=== PATIENT | male | born 1970 | race Caucasian/White ===

== ENCOUNTER 2025-02-28 18:39 | Inpatient (IN) | payer OTHER, SELFPAY ==
--- OUTSIDE RECORDS SUMMARY | 2025-02-28 18:45 | XMS_ITS | Clinical Summary ---
Author Organization [facility] [place] [address] Care Team Providers Care [employer] Supervisor Name Role Phone Unavailable Primary Care Provider Unavailabl e Allergies No known active allergies Medications hydrOXYzine (ATARAX) 25 mg tabletIndication s:anxiety TK 1 T PO TID PRA 05/26/2020 Active dulaglutide (TRULICITY SUBQ)Indications :type 2 diabetes mellitus Inject under the skin. Active metFORMIN (FORTAMET) 500 mg 24 hr tabletIndication s:type 2 diabetes mellitus Take 500 mg by mouth daily with breakfast. Active Active Problems Problem Noted Date Diagnosed Date Substance induced mood disorder 03/17/2024 Intentional drug overdose, initial encounter 07/2024 Social History Tobacco Use Types Packs/Day Years Used Date Smoking Tobacco: Unknown Tobacco Cessation:Counseling Given: Not Answered [facility] Utilities Answer Date Recorded In the past 12 months has e [employer], gas, oil, or water [employer] threatened to shut off services in your home? Patient unable to answer 03/14/2024 Humiliation, Afraid, Rape, a nd Kick questionnaire Answer Date Recorded Within the last year, have y ou been afraid of your partner or ex-partner? Patient unable to answer 03/14/2024 Within the last year, have y ou been humiliated or emotionally abused in other ways by your partner or ex-partner? Patient unable to answer 03/14/2024 Within the last year, have y ou been kicked, hit, slapped, or otherwise physically hurt by your partner or ex-partner? Patient unable to answer 03/14/2024 Within the last year, have y ou been raped or forced to have any kind of sexual activity by your partner or ex-partner? Patient unable to answer 03/14/2024 Overall Financial Resource Strain (CARDIA) Answe r Date Recorded How hard is it for you to pa y for the very basics like food, housing, medical care, and heating? Patient unable to answer 03/14/2024 Hunger Vital Sign Answer Date Recorded Within the past 12 months, y ou worried that your food would run out before you got the money to buy more. Never true 03/17/20 24 Within the past 12 months, t he food you bought just didn't last and you didn't have money to get more. Never true 03/17/2024 PRAPARE - Transportation Answer Date Re corded In the past 12 months, has l ack of transportation kept you from medical appointments or from getting medications? Patient unable to answer 03/14/2024 Lack of Transportation (Non-Medical) Not on file 03/14/2024 Housing Stability Vital Sign Answer Vinnie e Recorded Unable to Pay for Housing in the Last Year Not o n file 03/14/2024 Number of Times Moved in the Last Year Not on fi le 03/14/2024 At any time in the past 12 m [facility], were you homeless or living in a senior living (including now)? Patient unable to answer 03/14/2024 Sex and Gender Information Value Date Recorded Sex Assigned at Not on file Legal Sex Male 1:13 AM EDT Gender Identity Not on file Sexual Orientation Not on file Last Filed Vital Signs Vital Sign Reading Time Taken Comments Blood Pressure 145/82 03/18/2024 12:52 PM EDT Pulse 97 03/18/2024 12:52 PM EDT Temperature 37.2 C (98.9 F) 03/18/2024 12:52 PM EDT Respiratory Rate 97 03/18/2024 12:5 2 PM EDT Oxygen Saturation 97% 03/18/2024 12: 52 PM EDT Inhaled Oxygen Concentration - - Weight 82.5 kg (181 lb 14.1 oz) 03/17/2024 4:47 PM EDT Height 182.9 cm (6') 03/17/2024 4:47 PM EDT Body Mass Index 24.67 03/17/2024 4:47 PM EDT Plan of Treatment Health Maintenance Due Date Last Done Comments CT Colonography 1968 Colonoscopy 1968 Colorectal Cancer Screening 1968 Diabetes: Urine Microalbumin 1968 FIT-DNA (Cologuard) 1968 FIT 1968 FOBT 1968 Flex Sigmoidoscopy - 5y 1968 HIV Screening 1968 Diabetes: Retinopathy Screening 1986 Hepatitis C Screening 1986 Hepatitis B Vaccines (1 of 3 - 19+ 3-dose series) 10/25/1987 Pneumococcal Vaccine, 50+ Years (2 of 2 - PPSV23) 06/27/2015 05/02/2015 Zoster Vaccines (1 of 2) 2018 COVID-19 Vaccine (1 - 2023-2 5 season) 2024 Diabetes: Hemoglobin A1C 09/14/2024 024, 05/30/2020, 08/30/2015 DTaP,Tdap,and Td Vaccines (2 - Td or Tdap) 09/19/2024 09/19/2014 Influenza Vaccine (#1) 2025 HPV Vaccines Aged Out No longer eligi ble based on patient's age to complete this topic Hepatitis A Vaccines Aged Out No long er eligible based on patient's age to complete this topic MMR Vaccines Aged Out No longer eligi ble based on patient's age to complete this topic Meningococcal Vaccine Aged Out No betito fern eligible based on patient's age to complete this topic Procedures Procedure Name Priority Date/Time Associated Diagnosis Comments HEMOGLOBIN A1C Add-On 03/14/2024 1:21 AM EDT from Last 3 Months or Most Recently Relevant to Health Maintenance Results * (ABNORMAL) Hemoglobin A1c (03/14/2024 1:21 AM EDT) Hemoglobin A1C 10.4(H) 4.4 - 6.4 % 03/14/2024 3:11 AM EDT [facility] Blood Venous blood specimen / Unknown Venipuncture / Unknown 03/14/2024 1:21 AM EDT 03/14/2024 1:25 AM EDT Narrative [facility] - 03/14/2024 3:11 AM EDT HbA1C greater than or equal to 6.5% diagnosis for Diabetes Mellitus. In the absence of unequivocal hyperglycemia, test should be confirmed by repeat testing. ADA Guidelines: Diagnosis and Classification of Diabetes Mellitus (position statement), Diabetes Care 2010; 33:S62-9. Hemoglobin A1C results may be inaccurate if abnormal hemoglobins are present. Tara Vogel [facility] LAB BLOOD ORDERABLES NO STA T Final Result [facility] [address] [place] [address], from Last 3 Months or Most Recently Relevant to Health Maintenance Advance Directives For more information, please contact: [phone] * Full Code (Latest Code Status on File) Date Activated Date Inactivated Comments 03/17/2024 4:55 PM 03/18/2024 4:58 PM * Full Code Date Activated Date Inactivated Comments 03/14/2024 2:21 AM 03/17/2024 4:46 PM * Full Code Date Activated Date Inactivated Comments 03/14/2024 1:34 AM 03/14/2024 2:21 AM
--- OUTSIDE RECORDS SUMMARY | 2025-02-28 18:45 | XMS_ITS ---
Author Name [facility] Organization Unknown Care Team Organization Name Specialty Phone Email Start Date End Da te [facility] Termed, PROVIDER Primary Care 06/10/202203/03
[2025-02-28 19:20] VITALS: BMI 24.8
[2025-02-28 20:00] VITALS: BP 122/76; PULSE 101; RESP 16; TEMP 36.8; O2SAT 97
[2025-02-28] MEDS: Insulin Glargine,Hum.rec.anlog 100 UNIT/ML 10 ML VIAL 10 UNIT SUBCUT (21:15)
[2025-02-28 22:34] LABS: Glucose, Whole Blood 193 mg/dL (60-115)
--- NOTE | 2025-02-28 22:56 | PC.NURSE ---
Admission Note Bill Pope, a 54-year-old man, was presented to [facility] ED via ambulance on section 12 by Wing JOHNSON from [facility] with chief complaint of making suicidal statement, under ETOH influence, with plan to jump off the [facility] parking roof or cutting his wrist. Patient reported that he has suicidal ideation for over 20 years. This time it is triggered by situational crises such as unemployment, homelessness, no car, and his recent medical finding of mass on his right kidney leading to his relapse on ETOH three weeks ago. The patient has a medical and psychiatric history of? HTN, COPD, Kidney stones, mass on the right kidney, hyperlipidemia, diverticulitis, diabetes, depression, and alcohol use disorder. Laser lithotripsy scheduled on 03/03/25 at [facility] and Kidney biopsy scheduled on 03/20/25 at [facility]. Bill arrived at our unit in a stretcher at 1913 on 02/28/25, signed CV/approved by the provider, with an admitting diagnosis of? depression. He is full-code. The patient is alert and oriented, times four. Behaviour pleasant and compliant with the admission process. Thought content logical/clear, thought process linear. Mood depressed and anxious. Affect flat. Endorses depression 10/10 and 6/10. Denied SI/HI/AVH. No skin issues were observed. VSS except pulse 101. POC was 193 @ 2229. CIWA @ 2113 was 8, administered Ativan 1 mg/effective. No history of ETOH withdrawal seizure. Med reconciliation was completed by the colleague, approved by the provider, MAR active, and the patient is compliant with medication. He ambulates independently, independent with care, and follows direction well. Labs are unremarkable. Medical records show UA negative. Utox positive for Benzos.? EKG abnormal/sinus tachycardia with possible anterior infarct. Bill signed his treatment plan, safety tool, belonging list, and release paper. Contraband searched. Bill is not a fall risk and is on a 15-minute for safety check.
[2025-03-01 08:00] VITALS: BP 129/64; PULSE 79; RESP 18; TEMP 36.9; O2SAT 99
[2025-03-01] MEDS: Nicotine 21 MG PATCH.TD24 TRANSDERMA (08:31)
[2025-03-01] MEDS: Clotrimazole 1 % Cream 15 GM TUBE 1 APPL TOPICAL ×2 (08:33→21:42)
--- NOTE | 2025-03-01 08:44 | PC.NURSE ---
Pt was offered NRT and utilized Nicotine patch. Pt is interested in smoking cessation and is interested in [facility] upon discharge.
[2025-03-01 09:10] LABS: Hemoglobin A1C 177.7610 umol/L; Total Hemoglobin (HGBA1C) 3763.1668 umol/L
--- NOTE | 2025-03-01 09:13 | HO.PSYADMNOT ---
HPI Date of Service: 03/01/25 Chief Complaint: SI Sources of Information: patient interviewed, chart reviewed and crisis/core team assessment reviewed HPI Subjective Notes: Plata Warning and Conditional Voluntary Healthcare Proxy: No Guardianship: No Medical Problems Affecting Mental Status: Yes (Found down some kidney issues, where he started drinking, and having SI) Narrative: Patient referred from [facility] ED, he is a 54 years old [place]ian speaking male with history of hypertension, COPD, kidney stones-left kidney, mass on right kidney and alcohol use, history of type 2 diabetes, history of suicide attempts and history of suicidal thoughts presented via ambulance on a section 12 from [place] [facility] from [facility] after expressing plans to jump off the roof of the parking structure while intoxicated. Patient been seen on 03/01 at 10:43 chief complaint I am suicidal I do not want to continue to be like this. I am an alcoholic. I do not want to be continue like this . Precipitants: Since he was informed that this is a mass in his right kidneys, he starts start drinking heavily for 3 weeks with a couple of pt a day with heaviest weight was last week. He he has been sober for 11 months prior to this relapsed. 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 Denies legal issues, history of DUI, not current. Denies access to guns. Denies SI/SIB/HI/AVH. Reports history of suicidal thoughts, and had doing stupid stuff when he has suicidal thoughts. History of suicide attempts via overdose on medications especially hydroxyzine. History of drinking alcohol to suicide attempts. He is anxious, but pleasant and cooperative, a self to the plans of medications. Reports sleeping and appetite has been good except for the weeks that he has been drinking. Mood is suck, reports increase in depression and anxiety 10/10. Past Psychiatric History: He reports history of 1 inpatient level of care many years ago for suicidal thoughts. No history of PHP. History of numerous detox for alcohol. No outpatient psychiatrist or therapist. PCP manage his medication No medication trial psychiatric. Remember that he took antidepressant before but can not recall the name, many years ago Medical Evaluation Reviewed: Yes PMF Narrative: Hypertension COPD, Diabetes, Kidney stones on left kidney. Mass in the right kidney Family History: He is 8 years ago, having 2 children who are 17 and 20 years old. They are with their mom. Patient was tearful when talking about his family. Both mom and dad passed. Mom in 2016. Dad committed suicide in 1990. History of bipolar: was given Prozac and turn to really manic per patient report which make patient resists to medication. Both mom and dad were alcoholic. He has a sibling he has not in contact and not sure if this sibling have any mental health or alcohol or other drugs issues. Social History: He is homeless, some college level for education. 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 He has no family support. No outpatient support Substance History: History of using cocaine and heroin. Been sober for many years. Smoke a pack a day. Using marijuana history, but denies current use. Drinking alcohol started when he was in his early 20s, having history of sober for 11 months before this time. He relapsed on alcohol 3 weeks ago after find out about his kidney issues. Denies withdrawal seizures. Trauma History: Denies Diagnostics Vital Signs (24Hr): Vital Signs - 24 hr 02/28/25 20:00 03/01/25 08:00 Temperature 98.2 F 98.4 F Pulse Rate 101 H 79 Respiratory Rate 16 18 Blood Pressure 122/76 129/64 Pulse Oximetry 97 99 Oxygen Delivery Method Room Air Room Air BMI result Body Mass Index 24.8 Labs 03/01/25 08:54 03/01/25 08:54 Labs: Laboratory Results - last 48 hr 02/28/25 03/01/25 22:29 08:54 POC Glucose 193 H Estimat Average Glucose 140 Hemoglobin A1c % 6.5 H Meds/Allergies Meds Home Medications ?Medication ?Instructions ?Recorded ?Confirmed ?Type albuterol sulfate 90 mcg/actuation 2 puff inhalation Q4-6H PRN 02/28/25 02/28/25 History aerosol inhaler (Ventolin HFA) Shortness Of Breath Or Wheezing dulaglutide 1.5 mg/0.5 mL 1.5 mg subcut QWEEK 02/28/25 02/28/25 History subcutaneous pen injector (Trulicity) folic acid 1 mg tablet 1 mg PO DAILY 02/28/25 02/28/25 History insulin glargine 100 unit/mL (3 10 unit subcut BEDTIME 02/28/25 02/28/25 History mL) subcutaneous pen (Lantus Solostar U-100 Insulin) ketoconazole 2 % topical cream 1 appl topical DAILY 02/28/25 02/28/25 History lisinopril 10 mg tablet 10 mg PO DAILY 02/28/25 02/28/25 History melatonin 3 mg tablet 6 mg PO BEDTIME 02/28/25 02/28/25 History multivitamin with folic acid 400 1 tab PO DAILY 02/28/25 02/28/25 History mcg tablet (Daily-Fady (with folic acid)) naltrexone 50 mg tablet 50 mg PO DAILY 02/28/25 02/28/25 History nicotine 21 mg/24 hr daily 1 patch topical DAILY 02/28/25 02/28/25 History transdermal patch rosuvastatin 5 mg tablet 5 mg PO DAILY 02/28/25 02/28/25 History thiamine HCl (vitamin B1) 100 mg 100 mg PO DAILY 02/28/25 02/28/25 History tablet umeclidinium 62.5 mcg-vilanterol 1 ea inhalation DAILY 02/28/25 02/28/25 History 25 mcg/actuation powdr for inhalation (Anoro Ellipta) Allergies Allergies Allergy/AdvReac Type Severity Reaction Status Date / Time No Known Allergies Allergy Verified 02/28/25 19:21 Mental Status Exam Mental Status Exam Narrative: Patient is alert and oriented x4; behavior is cooperative, friendly with moderate to severe anxiety and depression; patient is not in distress; dressed in hospital attire with kempt hair and adequate hygiene; mood is described as suck and affect congruent; eye contact appropriate; Speech is normal rate, volume and prosody and not pressured; no psychomotor agitation/retardation present; thought process is organized and goal directed; Thought content is WNL, pertinent to relevant topics and without any delusional content, paranoid ideation or grandiosity; denies any SI/SIB/HI. Denies AH and there is no evidence of perceptual disturbance. Patient's insight and judgment poor . Assessment & Plan Assessment & Plan (1) HTN (hypertension): Status: Acute Code(s): I10 - Essential (primary) hypertension (2) MDD (major depressive disorder), recurrent episode, moderate: Status: Acute Code(s): F33.1 - Major depressive disorder, recurrent, moderate (3) COPD (chronic obstructive pulmonary disease): Status: Acute Code(s): J44.9 - Chronic obstructive pulmonary disease, unspecified (4) Diabetes mellitus: Status: Acute Code(s): E11.9 - Type 2 diabetes mellitus without complications (5) Alcohol abuse: Status: Acute Code(s): F10.10 - Alcohol abuse, uncomplicated Plan HPI: Patient referred from [facility] ED, he is a 54 years old [place] speaking male with history of hypertension, COPD, kidney stones-left kidney, mass on right kidney and alcohol use, history of type 2 diabetes, history of suicide attempts and history of suicidal thoughts presented via ambulance on a section 12 from [place] [facility] from [facility] after expressing plans to jump off the roof of the parking structure while intoxicated. History of suicide attempts, history of alcohol use, numerous history of detox, history of 1 inpatient level of care many years ago for suicidal thoughts. He has not diagnosed with any psychiatric condition but mood has been on and off, up and down. Formulation/clinical reasoning: Increased stress, increased depression and anxiety 05/12, relapsed on alcohol the past 3 weeks, suicidal thoughts with plan in context of acute medical condition that he just found down he has a mass in the kidney, he also lost his jobs 3 weeks at the same time with the kidneys issues. He has not diagnosed with depression or bipolar before. History of suicide attempts. No outpatient providers, no family support, no system support. Even the above information, patient will be safe to be in the restrictive environment, monitor for safety, for safe detoxing from alcohol, manage medications, and upon discharge, we will refer patient to outpatient psychiatrist and therapist. Hospital course: 02/27/25: He placed diabetic protocol with insulin sliding scale. Placed on CIWA protocol with Ativan p.r.n.. Continue with home medications for hypertension, COPD, diabetic. I have discussed with patient regarding diagnosis. He is not sure if he has manic episode, but mood is up and down, per patient, that was bipolar, was given Prozac which was very bad turn him into a manic. Since then, patient has been reluctant to assess any antidepressants. At this moment, we will continue to see if he has any manic behavior. It is safe to start him on mood stabilizer, then at antidepressants on as a plan for today We will start with Trileptal 300 twice a day for mood. Will continue to monitor for sodium. Low-sodium this morning, most likely from poor meal intake has been consistently drinking the past couple of weeks. We will also held the naltrexone until he is done with detox Continue with melatonin 6 mg at bedtime for insomnia. Trazodone as needed for sleep. Hydroxyzine 50 mg as needed for anxiety and Ativan PRN per CIWA protocol. Trulicity and COPD non firmly the inhaler sent to [facility] [place]. Hope he can get started tomorrow Plan Patient on 15 minute checks for safety. Admitted to [facility]. CV. Work with treatment team to do collateral for CSS/CCS if possible for aftercare. Refer to patient to certified peer specialist. Patient to call rescheduled appointments with facility for his kidneys issues. Contact the hospitalist regarding hospitalist consultation on admission. Lab results from ED: BAL is 236. U tox positive for benzo, BUN 32, ALT and AFT is within normal limit. TSH is 1.80. Sodium is 135. 07/30: Sodium is 144. A1c is 6.5, BUN is 25. We will continue to monitor for sodium as he started the Trileptal. Patient educated on: diagnosis, medication risk/benefits, substance abuse and therapeutic strategies Reason for continued inpatient stay Substantial Risk for: med/psych decompensation Statement Statement: I have reviewed the history and physical and performed a pertinent examination on my patient. No changes have occurred unless specified. If the History and Physical was not performed prior to admission, the Hospitalist's service will be consulted for completing the admission physical. Time Spent With Patient Time: Total time managing care of this patient today ____ minutes.
[2025-03-01 09:29] LABS: Alanine Aminotransferase 20 U/L (0-40); Albumin Level 4.3 g/dL (3.5-5.0); Alkaline Phosphatase 112 U/L (39-117); Anion Gap 13 (12-20); Aspartate Amino Transferase 22 U/L (5-37); Blood Urea Nitrogen 25 mg/dL (9-16); Calcium 9.4 mg/dL (8.4-10.2); Carbon Dioxide 27 mmol/L (22-29); Chloride 99 mmol/L (96-108); Cholesterol 174 mg/dL (<200); Creatinine Clr Calc Pharmacy 99.4; Estimated Glomerular Filt Rate > 60; HDL Cholesterol 38 mg/dL (>40); Potassium 4.6 mmol/L (3.3-5.1); Sodium 134 mmol/L (135-145); Total Protein 7.6 g/dL (6.5-8.0); Triglycerides 126 mg/dL (<150)
--- NOTE | 2025-03-01 09:43 | HO.PM.IMCN ---
History of Present Illness Data of Consult Service Date: 03/01/25 Primary Care Provider: Karlie Pearce APRN [facility] Reason for consult: Medical management 54-year-old male with a past medical history of hypertension, COPD, kidney stones, right kidney mass, EtOH abuse presented via ambulance on a section 12 from [place] police Department from the [facility] after expressing plans to jump off the roof of the parking structure while intoxicated. Patient has a total of 8 attempts of suicide totally most recently in January 2025 due to an overdose of sleeping pills. Patient has been drinking 1 pt daily for the last 3 weeks, after a period of 11 months of sobriety. He has multiple stressors after being kicked out of the sober home, homelessness, and loss of job, as well as health concerns. Patient had mild leukocytosis, H&H within normal limits, LFTs within normal limits, TSH within normal limits. Slight increase in BUN/creatinine likely due to decreased p.o. intake. A1c noted to be 6.5. Vitals are stable. Patient is scheduled to have a lithotripsy on 03/03. He is followed by [facility]. Patient reports that he has a mass in his right kidney that has been there for about 1 month he is scheduled to have a biopsy of this area as well. On exam he denies any shortness of breath, dizziness, lightheadedness, back pain, abdominal pain, dysuria or any other concerning symptoms. Review of Systems Review of Systems: Denies any shortness of breath, chest pain, dizziness, lightheadedness, abdominal pain or discomfort, nausea vomiting or diarrhea PMFSH Social History Household Members: None Housing: Homeless Do you presently have visiting nurse or other home services: No Comment: Patient is not a fall risk Patient Tobacco Use Status: Current everyday Tobacco user Tobacco use type: Cigarette Currently Displaying Signs/Symptoms of Drug Intoxication Withdrawal: No Have you been hit, kicked, punched, or otherwise hurt by someone within the past year? If so, by whom?: No Do you feel safe in your current relationship?: No Current Relationship Is there a partner from a previous relationship who is making you feel unsafe now?: No Advance Directives: No Advance Directives Information Provided: No Do you have thoughts of harming others: None Do you have a plan to hurt others: No Plan Recently lost weight without trying: No Nutrition Risks: No Nutritional Risk Poor oral hygiene: No service: No Sexual orientation: Straight/Heterosexual Meds Allergies Allergy/AdvReac Type Severity Reaction Status Date / Time No Known Allergies Allergy Verified 02/28/25 19:21 Active Medications: Current Medications Acetaminophen (Acetaminophen 325 Mg Tablet) 650 mg PO Q6H PRN PRN Reason: Headache/Pain, Scale 1-10 Al Hydroxide/Mg Hydroxide (Magnesium Hydrox/Alum Hydrox 30 Ml Oral.Susp) 30 ml PO Q6H PRN PRN Reason: Heartburn/Nausea Albuterol Sulfate (Albuterol Sulfate 90 Mcg 8 Gm Inhaler) 2 puff INHALE Q4H PRN PRN Reason: Shortness Of Breath Or Wheezing Atorvastatin Calcium (Atorvastatin Calcium 20 Mg Tablet) 20 mg PO DAILY [facility] Last Admin: 03/01/25 08:33 Dose: 20 mg Clotrimazole (Clotrimazole 1 % Cream 15 Gm Tube) 1 appl TOPICAL DAILY [facility] Last Admin: 03/01/25 08:33 Dose: 1 appl Folic Acid (Folic Acid 1 Mg Tablet) 1 mg PO DAILY [facility] Last Admin: 03/01/25 08:32 Dose: 1 mg Hydroxyzine HCl (Hydroxyzine Hcl 25 Mg Tablet) 25 mg PO TID PRN PRN Reason: Anxiety Insulin Glargine (Insulin Glargine,Hum.Rec.Anlog 100 Unit/Ml 10 Ml Vial) 10 unit SUBCUT BEDTIME [facility] Last Admin: 02/28/25 21:15 Dose: 10 unit Lisinopril (Lisinopril 10 Mg Tablet) 10 mg PO DAILY [facility]; Protocol Last Admin: 03/01/25 08:33 Dose: 10 mg Lorazepam (Lorazepam 1 Mg Tablet) 1 mg PO Q2H PRN PRN Reason: CIWA 8-11 Last Admin: 02/28/25 21:15 Dose: 1 mg Lorazepam (Lorazepam 1 Mg Tablet) 2 mg PO Q2H PRN PRN Reason: CIWA 12-15 Magnesium Hydroxide (Milk Of Magnesia 30 Ml Oral.Susp) 30 ml PO DAILY PRN PRN Reason: Constipation Melatonin (Melatonin 3 Mg Tablet) 6 mg PO BEDTIME [facility] Last Admin: 02/28/25 21:15 Dose: 6 mg Multivitamins/Vitamin C (Multivitamin Tablet) 1 tab PO DAILY [facility] Last Admin: 03/01/25 08:33 Dose: 1 tab Naltrexone HCl (Naltrexone Hcl 50 Mg Tablet) 50 mg PO DAILY [facility] Last Admin: 03/01/25 08:32 Dose: 50 mg Nicotine (Nicotine 21 Mg Patch.Td24) 21 mg TRANSDERMA DAILY [facility] Last Admin: 03/01/25 08:31 Dose: 21 mg Nicotine Polacrilex (Nicotine Polacrilex 2 Mg Gum) 2 mg BUCCAL Q1H PRN PRN Reason: Nicotine Cravings Non-Formulary Medication (Dulaglutide [Trulicity]) 1.5 mg SUBCUT QWEEK [facility] Non-Formulary Medication (Umeclidinium-Vilanterol [Anoro Ellipta]) 1 each INHALE DAILY [facility] Olanzapine (Olanzapine 5 Mg Tablet) 5 mg PO BID PRN PRN Reason: agitation Thiamine HCl (Thiamine Hcl 100 Mg Tablet) 100 mg PO DAILY [facility] Last Admin: 03/01/25 08:33 Dose: 100 mg Trazodone HCl (Trazodone Hcl 50 Mg Tablet) 50 mg PO BEDTIME MRX1 PRN PRN Reason: Insomnia Home Medications ?Medication ?Instructions ?Recorded ?Confirmed ?Last Taken ?Type albuterol sulfate 90 mcg/actuation 2 puff inhalation Q4-6H PRN 02/28/25 02/28/25 02/28/25 History aerosol inhaler (Ventolin HFA) Shortness Of Breath Or Wheezing dulaglutide 1.5 mg/0.5 mL 1.5 mg subcut QWEEK 02/28/25 02/28/25 Unknown History subcutaneous pen injector (Trulicity) folic acid 1 mg tablet 1 mg PO DAILY 02/28/25 02/28/25 Unknown History insulin glargine 100 unit/mL (3 10 unit subcut BEDTIME 02/28/25 02/28/25 02/28/25 History mL) subcutaneous pen (Lantus Solostar U-100 Insulin) ketoconazole 2 % topical cream 1 appl topical DAILY 02/28/25 02/28/25 Unknown History lisinopril 10 mg tablet 10 mg PO DAILY 02/28/25 02/28/25 Unknown History melatonin 3 mg tablet 6 mg PO BEDTIME 02/28/25 02/28/25 02/28/25 History multivitamin with folic acid 400 1 tab PO DAILY 02/28/25 02/28/25 02/28/25 History mcg tablet (Daily-Fady (with folic acid)) naltrexone 50 mg tablet 50 mg PO DAILY 02/28/25 02/28/25 02/28/25 History nicotine 21 mg/24 hr daily 1 patch topical DAILY 02/28/25 02/28/25 02/28/25 History transdermal patch rosuvastatin 5 mg tablet 5 mg PO DAILY 02/28/25 02/28/25 02/28/25 History thiamine HCl (vitamin B1) 100 mg 100 mg PO DAILY 02/28/25 02/28/25 02/28/25 History tablet umeclidinium 62.5 mcg-vilanterol 1 ea inhalation DAILY 02/28/25 02/28/25 02/28/25 History 25 mcg/actuation powdr for inhalation (Anoro Ellipta) Physical Exam Vital Signs and Narrative: Vital Signs: Last Vital Signs Temp 98.4 F 03/01/25 08:00 Pulse 79 03/01/25 08:00 Resp 18 03/01/25 08:00 BP 129/64 03/01/25 08:00 Pulse Ox 99 03/01/25 08:00 O2 Del Method Room Air 03/01/25 08:00 BMI result Body Mass Index 24.8 Alert and oriented X3, able to give good history. Neuro: CN II-X11 intact, no deficits, visual acuity intact EYES: PERRLA, EOM intact ENT: Hearing intact, lips moist Cardiac: S1 S2 RRR, No ectopy Pulmonary: lungs clear to auscultation, No increased WOB. Abdominal: BS active in all 4 quadrants, no guarding or tenderness MSK: Strength 5/5 upper and lower extremities : Deferred Extremities: No edema in lower extremities Psych: mood stable, Quiet and cooperative. Skin: Warm and dry, Intact Results Labs 03/01/25 08:54 03/01/25 08:54 Labs: Laboratory Results - last 24 hr 02/28/25 03/01/25 22:29 08:54 Anion Gap 13 Estim Creat Clear Calc 99.4 Estimated GFR > 60 POC Glucose 193 H Random Glucose 233 H Estimat Average Glucose 140 Hemoglobin A1c % 6.5 H Calcium 9.4 Total Bilirubin 0.3 AST 22 ALT 20 Alkaline Phosphatase 112 Total Protein 7.6 Albumin 4.3 Triglycerides 126 Cholesterol 174 LDL Cholesterol, Calc 111 H HDL Cholesterol 38 L Assessment and Plan (1) HTN (hypertension): Status: Acute Plan Depression with suicidal ideation/EtOH abuse Treatment per psychiatric team Right renal mass, left kidney stone Scheduled to have a lithotripsy on March 03, also scheduled to have a renal biopsy in the near future Patient is a patient of [facility], we will need to be notified so that these tests and procedures can be rescheduled Hypertension/HLD Continue lisinopril daily Continue atorvastatin Type 2 diabetes Continue Trulicity weekly, insulin glargine at night. Lispro sliding scale. Thank you for allowing me to participate in the care of this patient. Will follow as needed. Please reconsult of any acute concerns or issues arise
[2025-03-01 11:47] LABS: Glucose, Whole Blood 138 mg/dL (60-115)
[2025-03-01 12:00] VITALS: BP 118/74; PULSE 89; RESP 16; TEMP 36.2; O2SAT 97
[2025-03-01 12:41] LABS: MANUAL DIFF FLAG NO
[2025-03-01 12:49] LABS: Hematocrit 43.3 % (42.0-52.0); Hemoglobin 14.7 g/dl (14.0-18.0); Imm Gran Abs Auto 0.03 X10*3/uL (0.00-0.03); Imm Gran Pct Auto 0.3 % (0.0-0.4); Lymphocytes Absolute Auto 1.9 X10*3/uL (1.2-4.9); Mean Corpuscular HGB Conc 33.9 g/dl (31.0-36.0); Mean Corpuscular Hemoglobin 31.8 pg (27.0-33.0); Mean Corpuscular Volume 93.7 fL (80.0-98.0); NRBC Abs Auto 0.000 X10*3/uL (0.0-0.012); NRBC Pct Auto 0.0 /100WBC (0.0-0.2); Platelet Count 176 X10*3/uL (160-400); Red Blood Count 4.62 X10*6/uL (4.60-5.80); White Blood Count 8.9 X10*3/uL (4.8-10.8)
[2025-03-01 16:05] VITALS: BP 124/69; PULSE 77; TEMP 36.7; O2SAT 98
[2025-03-01 16:55] LABS: Glucose, Whole Blood 182 mg/dL (60-115)
[2025-03-01 20:00] VITALS: BP 129/68; PULSE 88; RESP 16; TEMP 36.8; O2SAT 98
[2025-03-01 20:51] LABS: Glucose, Whole Blood 192 mg/dL (60-115)
[2025-03-01] MEDS: Insulin Glargine,Hum.rec.anlog 100 UNIT/ML 10 ML VIAL 10 UNIT SUBCUT (21:06)
[2025-03-02 07:52] VITALS: BP 131/71; RESP 75; TEMP 36.3; O2SAT 99
[2025-03-02 08:02] LABS: Glucose, Whole Blood 136 mg/dL (60-115)
[2025-03-02] MEDS: Nicotine 21 MG PATCH.TD24 TRANSDERMA (09:08)
[2025-03-02 09:09] VITALS: BP 134/68
[2025-03-02] MEDS: Clotrimazole 1 % Cream 15 GM TUBE 1 APPL TOPICAL (10:01)
[2025-03-02] MEDS: [UNRECOGNIZED DRUG - OTHER] 1 EACH SUBCUT (10:20)
[2025-03-02] MEDS: Fluticasone/Umeclidinium/Vilanterol 100/62.5/25 BLST.W.DEV 1 PUFF INHALE (13:21)
[2025-03-02] MEDS: Hydrocortisone 1 % Ointment 28.35 GM TUBE 1 APPL TOPICAL ×2 (13:29→21:03)
--- NOTE | 2025-03-02 16:03 | MHC.RECOVRN ---
Addiction Consult Met with Bill, a 54-year-old male with a history of alcohol use disorder, HTN, COPD, and diabetes in 324 after receiving addiction consult. Discussed etoh consumption, recent stressors, and past success in recovery from alcohol. Pt stated he's struggled with addiction since his early 20s, starting with cocaine and then with an alcohol dependence. Pt now hasn't used cocaine in years and only uses etoh. Pt stated this is his 2nd inpatient psych admission, the first being about 20 years ago for alcohol and mental health related reasons. In the past month pt has had multiple hospitalizations and ED visits for alcohol-related issues including at [facility] and [facility]. Pt was just started on naltrexone ~ January 31, at one of the hospitals he was being treated in. He does not find naltrexone particularly effective and instead would like to try the injection form to see if there's any difference. Pt stated I'm a big AA cliff. I've had success with AA in the past, however there's clearly something missing in my system. Pt noted a trigger for his recent recurrence was finding out he has a mass on one of his kidneys and fearing it might be cancerous. Another trigger has been his ex- and not being able to see his two 17-year-old sons (twins) recently due to his recurrence. Prior to this pt stayed for 4 months in a sober living home named [facility] . Due to his recurrence pt failed a breathalyzer test at the sober living home and was immediately kicked out losing his housing. Pt has had periods of sobriety 11 months, 2 years, 4 months [..] and during that time AA meetings are what helped him the most. He stated he has a big AA group of people that will be there for him once he is ready to pursue sobriety again. He is currently working with SW on CSS bed searches at [facility], [facility], and [facility]. At this time pt declined outpatient appoint for outpatient treatment of his AUD as he admits to requiring a higher level of care such as inpatient treatment. He declined restarting naltrexone at this time or other MIKE. T/w to obtain an AA book for pt. No other questions or concerns offered at this time. Will continue to follow up w/pt, provide support, and assist with any recovery needs that arise.
[2025-03-02 17:08] LABS: Glucose, Whole Blood 108 mg/dL (60-115)
[2025-03-02 17:08] LABS: Glucose, Whole Blood 143 mg/dL (60-115)
[2025-03-02 20:00] VITALS: BP 149/75; PULSE 99; RESP 18; TEMP 36.8; O2SAT 97
[2025-03-02 21:19] LABS: Glucose, Whole Blood 237 mg/dL (60-115)
[2025-03-02] MEDS: Insulin Glargine,Hum.rec.anlog 100 UNIT/ML 10 ML VIAL 10 UNIT SUBCUT (21:25)
--- NOTE | 2025-03-02 22:02 | HO.PSYCHPN ---
Subjective Subjective Date of Service: 03/02/25 Reason For Visit: SI Subjective Notes: Conditional Voluntary Healthcare Proxy: No Guardianship: No Medical Problems Affecting Mental Status: No Interim History: Medical record and nursing notes reviewed; case discussed during rounds with team/nursing staff, and met with patient for supportive therapy/psychoeducation, as well as medication management. Patient slept well, compliant with medications. Reports feeling tired from medication this morning. Educate patient on 1st dose of medications which could be affected and make him tired. Denies other safety concerns. Reports very anxious and depressed. Reports that he has not eating well the past 3 4 weeks when he was drinking, which could be rule out for low-sodium. We will recheck tomorrow. Work with pharmacies to get pending non-formular medication available for patient Medication Compliance: Yes Side effects from medications: No (Rashes on his face from clotrimazole cream. Discontinue it) Attending Groups: Intermittent Review of Systems Acute medical concerns: No Medical Review of Systems: unchanged Review of Systems Review of Systems Denies any shortness of breath, chest pain, dizziness, lightheadedness, abdominal pain or discomfort, nausea vomiting or diarrhea Yes all other systems are reviewed and are negative Mental Status Exam Mental Status Exam Narrative: Patient is alert and oriented x4; behavior is cooperative, friendly with moderate to severe anxiety and depression; patient is not in distress; dressed in hospital attire with kempt hair and adequate hygiene; mood is described as very anxious and depressed and affect congruent; eye contact appropriate; Speech is normal rate, volume and prosody and not pressured; no psychomotor agitation/retardation present; thought process is organized and goal directed; Thought content is WNL, pertinent to relevant topics and without any delusional content, paranoid ideation or grandiosity; denies any SI/SIB/HI. Denies AH and there is no evidence of perceptual disturbance. Patient's insight and judgment fair . Diagnostics Vital Signs (24Hr): Vital Signs - 24 hr 03/02/25 07:52 03/02/25 09:09 03/02/25 20:00 Temperature 97.3 F 98.2 F Pulse Rate 99 Respiratory Rate 75 H 18 Blood Pressure 131/71 134/68 149/75 H Pulse Oximetry 99 97 Oxygen Delivery Method Room Air Room Air BMI result Body Mass Index 24.8 Labs 03/01/25 08:54 03/01/25 08:54 Labs: Laboratory Results - last 48 hr 02/28/25 03/01/25 03/01/25 22:29 08:54 11:42 WBC 8.9 RBC 4.62 Hgb 14.7 Hct 43.3 MCV 93.7 MCH 31.8 MCHC 33.9 RDW 13.3 Plt Count 176 MPV 11.2 Immature Gran % (Auto) 0.3 Neut % (Auto) 68.0 Lymph % (Auto) 20.8 Dyer % (Auto) 6.7 Eos % (Auto) 3.9 Baso % (Auto) 0.3 Lymph # (Auto) 1.9 Dyer # (Auto) 0.6 Eos # (Auto) 0.4 Baso # (Auto) 0.0 Abs Immat Gran (auto) 0.03 Absolute Neuts (auto) 6.1 Absolute Nucleated RBC 0.000 Nucleated RBC % (auto) 0.0 Sodium 134 L Potassium 4.6 Chloride 99 Carbon Dioxide 27 Anion Gap 13 BUN 25 H Creatinine 0.91 Estim Creat Clear Calc 99.4 Estimated GFR > 60 POC Glucose 193 H 138 H Random Glucose 233 H Estimat Average Glucose 140 Hemoglobin A1c % 6.5 H Calcium 9.4 Total Bilirubin 0.3 AST 22 ALT 20 Alkaline Phosphatase 112 Total Protein 7.6 Albumin 4.3 Triglycerides 126 Cholesterol 174 LDL Cholesterol, Calc 111 H HDL Cholesterol 38 L TSH 1.49 03/01/25 03/01/25 03/02/25 16:51 20:47 07:58 WBC RBC Hgb Hct MCV MCH MCHC RDW Plt Count MPV Immature Gran % (Auto) Neut % (Auto) Lymph % (Auto) Dyer % (Auto) Eos % (Auto) Baso % (Auto) Lymph # (Auto) Dyer # (Auto) Eos # (Auto) Baso # (Auto) Abs Immat Gran (auto) Absolute Neuts (auto) Absolute Nucleated RBC Nucleated RBC % (auto) Sodium Potassium Chloride Carbon Dioxide Anion Gap BUN Creatinine Estim Creat Clear Calc Estimated GFR POC Glucose 182 H 192 H 136 H Random Glucose Estimat Average Glucose Hemoglobin A1c % Calcium Total Bilirubin AST ALT Alkaline Phosphatase Total Protein Albumin Triglycerides Cholesterol LDL Cholesterol, Calc HDL Cholesterol TSH 03/02/25 03/02/25 03/02/25 12:15 17:03 21:08 WBC RBC Hgb Hct MCV MCH MCHC RDW Plt Count MPV Immature Gran % (Auto) Neut % (Auto) Lymph % (Auto) Dyer % (Auto) Eos % (Auto) Baso % (Auto) Lymph # (Auto) Dyer # (Auto) Eos # (Auto) Baso # (Auto) Abs Immat Gran (auto) Absolute Neuts (auto) Absolute Nucleated RBC Nucleated RBC % (auto) Sodium Potassium Chloride Carbon Dioxide Anion Gap BUN Creatinine Estim Creat Clear Calc Estimated GFR POC Glucose 108 143 H 237 H Random Glucose Estimat Average Glucose Hemoglobin A1c % Calcium Total Bilirubin AST ALT Alkaline Phosphatase Total Protein Albumin Triglycerides Cholesterol LDL Cholesterol, Calc HDL Cholesterol TSH Medications Medications Current Medications Acetaminophen (Acetaminophen 325 Mg Tablet) 650 mg PO Q6H PRN PRN Reason: Headache/Pain, Scale 1-10 Al Hydroxide/Mg Hydroxide (Magnesium Hydrox/Alum Hydrox 30 Ml Oral.Susp) 30 ml PO Q6H PRN PRN Reason: Heartburn/Nausea Albuterol Sulfate (Albuterol Sulfate 90 Mcg 8 Gm Inhaler) 2 puff INHALE Q4H PRN PRN Reason: Shortness Of Breath Or Wheezing Atorvastatin Calcium (Atorvastatin Calcium 20 Mg Tablet) 20 mg PO DAILY [facility] Last Admin: 03/02/25 09:09 Dose: 20 mg Dextrose (Dextrose 50 % 25 Gm/50 Ml Syringe) 25 gm IVPUSH Q15M PRN; Protocol PRN Reason: per Hypoglycemia Standing Ord. Fluticasone/Umeclidinium/Vilanterol (Fluticasone/Umeclidinium/Vilanterol 100/62.5/25 Blst.W.Dev) 1 puff INHALE RDAILY [facility] Last Admin: 03/02/25 13:21 Dose: 1 puff Folic Acid (Folic Acid 1 Mg Tablet) 1 mg PO DAILY [facility] Last Admin: 03/02/25 09:09 Dose: 1 mg Glucose (Glucose Gel 15 Gm Gel..Gram.) 15 gm PO Q15M PRN; Protocol PRN Reason: per Hypoglycemia Standing Ord. Hydrocortisone (Hydrocortisone 1 % Ointment 28.35 Gm Tube) 1 appl TOPICAL BID [facility]; Protocol Last Admin: 03/02/25 21:03 Dose: 1 appl Hydroxyzine HCl (Hydroxyzine Hcl 25 Mg Tablet) 25 mg PO TID PRN PRN Reason: Anxiety Last Admin: 03/02/25 21:01 Dose: 25 mg Insulin Glargine (Insulin Glargine,Hum.Rec.Anlog 100 Unit/Ml 10 Ml Vial) 10 unit SUBCUT BEDTIME [facility] Last Admin: 03/02/25 21:25 Dose: 10 unit Insulin Human Lispro (Insulin Lispro 100 Unit/Ml 3 Ml Vial) 0 unit SUBCUT QIDACHS [facility]; Protocol Last Admin: 03/02/25 21:25 Dose: 4 unit Lisinopril (Lisinopril 10 Mg Tablet) 10 mg PO DAILY [facility]; Protocol Last Admin: 03/02/25 09:09 Dose: 10 mg Lorazepam (Lorazepam 1 Mg Tablet) 1 mg PO Q2H PRN PRN Reason: CIWA 8-11 Last Admin: 02/28/25 21:15 Dose: 1 mg Lorazepam (Lorazepam 1 Mg Tablet) 2 mg PO Q2H PRN PRN Reason: CIWA 12-15 Magnesium Hydroxide (Milk Of Magnesia 30 Ml Oral.Susp) 30 ml PO DAILY PRN PRN Reason: Constipation Melatonin (Melatonin 3 Mg Tablet) 6 mg PO BEDTIME [facility] Last Admin: 03/02/25 21:01 Dose: 6 mg Multivitamins/Vitamin C (Multivitamin Tablet) 1 tab PO DAILY [facility] Last Admin: 03/02/25 09:10 Dose: 1 tab Naltrexone HCl (Naltrexone Hcl 50 Mg Tablet) 50 mg PO DAILY [facility] On Hold: 03/01/25 19:53 Last Admin: 03/01/25 08:32 Dose: 50 mg Nicotine (Nicotine 21 Mg Patch.Td24) 21 mg TRANSDERMA DAILY [facility] Last Admin: 03/02/25 09:08 Dose: 21 mg Nicotine Polacrilex (Nicotine Polacrilex 2 Mg Gum) 2 mg BUCCAL Q1H PRN PRN Reason: Nicotine Cravings Non-Formulary Medication (Umeclidinium-Vilanterol [Anoro Ellipta]) 1 each INHALE DAILY [facility] Pt Owned (Trulicity (1.5mg / 0.5ml)) 1 each SUBCUT We [facility] Last Admin: 03/02/25 10:20 Dose: 1 each Olanzapine (Olanzapine 5 Mg Tablet) 5 mg PO BID PRN PRN Reason: agitation Oxcarbazepine (Oxcarbazepine 300 Mg Tablet) 300 mg PO BID [facility] Last Admin: 03/02/25 21:01 Dose: 300 mg Thiamine HCl (Thiamine Hcl 100 Mg Tablet) 100 mg PO DAILY [facility] Last Admin: 03/02/25 09:09 Dose: 100 mg Trazodone HCl (Trazodone Hcl 50 Mg Tablet) 50 mg PO BEDTIME MRX1 PRN PRN Reason: Insomnia Last Admin: 03/02/25 21:02 Dose: 50 mg Allergies Allergies Allergy/AdvReac Type Severity Reaction Status Date / Time No Known Allergies Allergy Verified 02/28/25 19:21 Assessment & Plan Assessment & Plan (1) HTN (hypertension): Status: Acute Code(s): I10 - Essential (primary) hypertension (2) MDD (major depressive disorder), recurrent episode, moderate: Status: Acute Code(s): F33.1 - Major depressive disorder, recurrent, moderate (3) COPD (chronic obstructive pulmonary disease): Status: Acute Code(s): J44.9 - Chronic obstructive pulmonary disease, unspecified (4) Diabetes mellitus: Status: Acute Code(s): E11.9 - Type 2 diabetes mellitus without complications (5) Alcohol abuse: Status: Acute Code(s): F10.10 - Alcohol abuse, uncomplicated Plan HPI: Patient referred from [facility] ED, he is a 54 years old Amharic speaking male with history of hypertension, COPD, kidney stones-left kidney, mass on right kidney and alcohol use, history of type 2 diabetes, history of suicide attempts and history of suicidal thoughts presented via ambulance on a section 12 from [place] police from [facility] after expressing plans to jump off the roof of the parking structure while intoxicated. History of suicide attempts, history of alcohol use, numerous history of detox, history of 1 inpatient level of care many years ago for suicidal thoughts. He has not diagnosed with any psychiatric condition but mood has been on and off, up and down. Formulation/clinical reasoning: Increased stress, increased depression and anxiety 05/12, relapsed on alcohol the past 3 weeks, suicidal thoughts with plan in context of acute medical condition that he just found down he has a mass in the kidney, he also lost his jobs 3 weeks at the same time with the kidneys issues. He has not diagnosed with depression or bipolar before. History of suicide attempts. No outpatient providers, no family support, no system support. Even the above information, patient will be safe to be in the restrictive environment, monitor for safety, for safe detoxing from alcohol, manage medications, and upon discharge, we will refer patient to outpatient psychiatrist and therapist. Hospital course: 02/27/25: He placed diabetic protocol with insulin sliding scale. Placed on CIWA protocol with Ativan p.r.n.. Continue with home medications for hypertension, COPD, diabetic. I have discussed with patient regarding diagnosis. He is not sure if he has manic episode, but mood is up and down, per patient, that was bipolar, was given Prozac which was very bad turn him into a manic. Since then, patient has been reluctant to assess any antidepressants. At this moment, we will continue to see if he has any manic behavior. It is safe to start him on mood stabilizer, then at antidepressants on as a plan for today We will start with Trileptal 300 twice a day for mood. Will continue to monitor for sodium. Low-sodium this morning, most likely from poor meal intake has been consistently drinking the past couple of weeks. We will also held the naltrexone until he is done with detox Continue with melatonin 6 mg at bedtime for insomnia. Trazodone as needed for sleep. Hydroxyzine 50 mg as needed for anxiety and Ativan PRN per CIWA protocol. Trulicity and COPD non firmly the inhaler sent to [facility] pharmacy. Hope he can get started tomorrow. 03/02/25: Continue with CIWA protocol which he has not score. No symptoms of withdrawal. Discontinue CIWA plus the Ativan PRNs. Denies safety concerns but reports moderate to severe anxiety and depression. Started Trileptal last night, took the 2nd dose in the morning, reportedly the bit tired, he napped earlier before lunch. Continue with point of care q.i.d.. Was able to shut now with genetic non formula medication. He able to receive the Trulicity today. Reported that he has not been eating well the past 4 weeks due to drinking which could be affect his sodium. Denies history of low-sodium. Plan Patient on 15 minute checks for safety. Admitted to [facility]. CV. Work with treatment team to do collateral for CSS/CCS if possible for aftercare. Refer to patient to senior marketing specialist. Patient to call rescheduled appointments with facility for his kidneys issues. Contact the hospitalist regarding hospitalist consultation on admission. Lab results from ED: BAL is 236. U tox positive for benzo, BUN 32, ALT and AFT is within normal limit. TSH is 1.80. Sodium is 135. 03/01: Sodium is 144. A1c is 6.5, BUN is 25. We will continue to monitor for sodium as he started the Trileptal. 03/02: CMP for March 03. Patient educated on: diagnosis, medication risk/benefits, substance abuse and therapeutic strategies Informed Consent: understands Reason for continued inpatient stay Substantial Risk for: med/psych decompensation Time Spent With Patient Time: Total time managing care of this patient today ____ minutes.
[2025-03-03 07:47] VITALS: BP 115/63; PULSE 81; RESP 18; TEMP 36.6; O2SAT 96
[2025-03-03 07:55] LABS: Glucose, Whole Blood 127 mg/dL (60-115)
[2025-03-03 08:49] LABS: Alanine Aminotransferase 30 U/L (0-40); Albumin Level 4.3 g/dL (3.5-5.0); Alkaline Phosphatase 134 U/L (39-117); Anion Gap 14 (12-20); Aspartate Amino Transferase 26 U/L (5-37); Blood Urea Nitrogen 24 mg/dL (9-16); Calcium 9.3 mg/dL (8.4-10.2); Carbon Dioxide 27 mmol/L (22-29); Chloride 102 mmol/L (96-108); Creatinine Clr Calc Pharmacy 111.7; Estimated Glomerular Filt Rate > 60; Potassium 4.2 mmol/L (3.3-5.1); Sodium 139 mmol/L (135-145); Total Protein 7.6 g/dL (6.5-8.0)
[2025-03-03] MEDS: Nicotine 21 MG PATCH.TD24 TRANSDERMA (08:50)
[2025-03-03 08:54] VITALS: BP 127/69
[2025-03-03] MEDS: Hydrocortisone 1 % Ointment 28.35 GM TUBE 1 APPL TOPICAL (08:55)
[2025-03-03] MEDS: Fluticasone/Umeclidinium/Vilanterol 100/62.5/25 BLST.W.DEV 1 PUFF INHALE (08:57)
--- NOTE | 2025-03-03 10:23 | HO.PSYCHPN ---
Subjective Subjective Date of Service: 03/03/25 Reason For Visit: SI Subjective Notes: Conditional Voluntary Interim History: Keeping to self. laying in bed most of day. Patient reports feeling tired but anxious; he reports sleeping well last night. denies SI/HI/VH/AH. Per social media marketer, pt has phone intake with [facility] today. Continue current tx plan. Medication Compliance: Yes Side effects from medications: No Attending Groups: No Mental Status Exam Mental Status Exam Narrative: Pt is alert and oriented; behavior is cooperative and calm, guarded; dressed in casual attire; mood is described as anxious ; eye contact appropriate; Speech is normal rate, volume and not pressured; thought process is organized; Thought content is on tx; denies SI/HI/VH/AH. Diagnostics Vital Signs (24Hr): Vital Signs - 24 hr 03/02/25 20:00 03/03/25 07:47 03/03/25 08:54 Temperature 98.2 F 97.8 F Pulse Rate 99 81 Respiratory Rate 18 18 Blood Pressure 149/75 H 115/63 127/69 Pulse Oximetry 97 96 Oxygen Delivery Method Room Air Room Air BMI result Body Mass Index 24.8 Labs 03/01/25 08:54 03/03/25 08:19 Labs: Laboratory Results - last 48 hr 03/01/25 03/01/25 03/01/25 08:54 11:42 16:51 WBC 8.9 RBC 4.62 Hgb 14.7 Hct 43.3 MCV 93.7 MCH 31.8 MCHC 33.9 RDW 13.3 Plt Count 176 MPV 11.2 Immature Gran % (Auto) 0.3 Neut % (Auto) 68.0 Lymph % (Auto) 20.8 [place] % (Auto) 6.7 Eos % (Auto) 3.9 Baso % (Auto) 0.3 Lymph # (Auto) 1.9 [place] # (Auto) 0.6 Eos # (Auto) 0.4 Baso # (Auto) 0.0 Abs Immat Gran (auto) 0.03 Absolute Neuts (auto) 6.1 Absolute Nucleated RBC 0.000 Nucleated RBC % (auto) 0.0 Sodium Potassium Chloride Carbon Dioxide Anion Gap BUN Creatinine Estim Creat Clear Calc Estimated GFR POC Glucose 138 H 182 H Random Glucose Calcium Total Bilirubin AST ALT Alkaline Phosphatase Total Protein Albumin 03/01/25 03/02/25 03/02/25 20:47 07:58 12:15 WBC RBC Hgb Hct MCV MCH MCHC RDW Plt Count MPV Immature Gran % (Auto) Neut % (Auto) Lymph % (Auto) [place] % (Auto) Eos % (Auto) Baso % (Auto) Lymph # (Auto) [place] # (Auto) Eos # (Auto) Baso # (Auto) Abs Immat Gran (auto) Absolute Neuts (auto) Absolute Nucleated RBC Nucleated RBC % (auto) Sodium Potassium Chloride Carbon Dioxide Anion Gap BUN Creatinine Estim Creat Clear Calc Estimated GFR POC Glucose 192 H 136 H 108 Random Glucose Calcium Total Bilirubin AST ALT Alkaline Phosphatase Total Protein Albumin 03/02/25 03/02/25 03/03/25 17:03 21:08 07:51 WBC RBC Hgb Hct MCV MCH MCHC RDW Plt Count MPV Immature Gran % (Auto) Neut % (Auto) Lymph % (Auto) [place] % (Auto) Eos % (Auto) Baso % (Auto) Lymph # (Auto) [place] # (Auto) Eos # (Auto) Baso # (Auto) Abs Immat Gran (auto) Absolute Neuts (auto) Absolute Nucleated RBC Nucleated RBC % (auto) Sodium Potassium Chloride Carbon Dioxide Anion Gap BUN Creatinine Estim Creat Clear Calc Estimated GFR POC Glucose 143 H 237 H 127 H Random Glucose Calcium Total Bilirubin AST ALT Alkaline Phosphatase Total Protein Albumin 03/03/25 08:19 WBC RBC Hgb Hct MCV MCH MCHC RDW Plt Count MPV Immature Gran % (Auto) Neut % (Auto) Lymph % (Auto) [place] % (Auto) Eos % (Auto) Baso % (Auto) Lymph # (Auto) [place] # (Auto) Eos # (Auto) Baso # (Auto) Abs Immat Gran (auto) Absolute Neuts (auto) Absolute Nucleated RBC Nucleated RBC % (auto) Sodium 139 Potassium 4.2 Chloride 102 Carbon Dioxide 27 Anion Gap 14 BUN 24 H Creatinine 0.81 Estim Creat Clear Calc 111.7 Estimated GFR > 60 POC Glucose Random Glucose 142 H Calcium 9.3 Total Bilirubin 0.1 AST 26 ALT 30 Alkaline Phosphatase 134 H Total Protein 7.6 Albumin 4.3 Medications Medications Current Medications Acetaminophen (Acetaminophen 325 Mg Tablet) 650 mg PO Q6H PRN PRN Reason: Headache/Pain, Scale 1-10 Al Hydroxide/Mg Hydroxide (Magnesium Hydrox/Alum Hydrox 30 Ml Oral.Susp) 30 ml PO Q6H PRN PRN Reason: Heartburn/Nausea Albuterol Sulfate (Albuterol Sulfate 90 Mcg 8 Gm Inhaler) 2 puff INHALE Q4H PRN PRN Reason: Shortness Of Breath Or Wheezing Atorvastatin Calcium (Atorvastatin Calcium 20 Mg Tablet) 20 mg PO DAILY [facility] Last Admin: 03/03/25 08:53 Dose: 20 mg Dextrose (Dextrose 50 % 25 Gm/50 Ml Syringe) 25 gm IVPUSH Q15M PRN; Protocol PRN Reason: per Hypoglycemia Standing Ord. Fluticasone/Umeclidinium/Vilanterol (Fluticasone/Umeclidinium/Vilanterol 100/62.5/25 Blst.W.Dev) 1 puff INHALE RDAILY [facility] Last Admin: 03/03/25 08:57 Dose: 1 puff Folic Acid (Folic Acid 1 Mg Tablet) 1 mg PO DAILY [facility] Last Admin: 03/03/25 08:55 Dose: 1 mg Glucose (Glucose Gel 15 Gm Gel..Gram.) 15 gm PO Q15M PRN; Protocol PRN Reason: per Hypoglycemia Standing Ord. Hydrocortisone (Hydrocortisone 1 % Ointment 28.35 Gm Tube) 1 appl TOPICAL BID [facility]; Protocol Last Admin: 03/03/25 08:55 Dose: 1 appl Hydroxyzine HCl (Hydroxyzine Hcl 25 Mg Tablet) 25 mg PO TID PRN PRN Reason: Anxiety Last Admin: 03/03/25 08:57 Dose: 25 mg Insulin Glargine (Insulin Glargine,Hum.Rec.Anlog 100 Unit/Ml 10 Ml Vial) 10 unit SUBCUT BEDTIME [facility] Last Admin: 03/02/25 21:25 Dose: 10 unit Insulin Human Lispro (Insulin Lispro 100 Unit/Ml 3 Ml Vial) 0 unit SUBCUT QIDACHS [facility]; Protocol Last Admin: 03/03/25 08:35 Dose: Not Given Lisinopril (Lisinopril 10 Mg Tablet) 10 mg PO DAILY [facility]; Protocol Last Admin: 03/03/25 08:54 Dose: 10 mg Magnesium Hydroxide (Milk Of Magnesia 30 Ml Oral.Susp) 30 ml PO DAILY PRN PRN Reason: Constipation Melatonin (Melatonin 3 Mg Tablet) 6 mg PO BEDTIME [facility] Last Admin: 03/02/25 21:01 Dose: 6 mg Multivitamins/Vitamin C (Multivitamin Tablet) 1 tab PO DAILY [facility] Last Admin: 03/03/25 08:54 Dose: 1 tab Naltrexone HCl (Naltrexone Hcl 50 Mg Tablet) 50 mg PO DAILY [facility] On Hold: 03/01/25 19:53 Last Admin: 03/01/25 08:32 Dose: 50 mg Nicotine (Nicotine 21 Mg Patch.Td24) 21 mg TRANSDERMA DAILY [facility] Last Admin: 03/03/25 08:50 Dose: 21 mg Nicotine Polacrilex (Nicotine Polacrilex 2 Mg Gum) 2 mg BUCCAL Q1H PRN PRN Reason: Nicotine Cravings Non-Formulary Medication (Umeclidinium-Vilanterol [Anoro Ellipta]) 1 each INHALE DAILY [facility] Pt Owned (Trulicity (1.5mg / 0.5ml)) 1 each SUBCUT We [facility] Last Admin: 03/02/25 10:20 Dose: 1 each Olanzapine (Olanzapine 5 Mg Tablet) 5 mg PO BID PRN PRN Reason: agitation Oxcarbazepine (Oxcarbazepine 300 Mg Tablet) 300 mg PO BID [facility] Last Admin: 03/03/25 08:53 Dose: 300 mg Thiamine HCl (Thiamine Hcl 100 Mg Tablet) 100 mg PO DAILY [facility] Last Admin: 03/03/25 08:54 Dose: 100 mg Trazodone HCl (Trazodone Hcl 50 Mg Tablet) 50 mg PO BEDTIME MRX1 PRN PRN Reason: Insomnia Last Admin: 03/02/25 21:02 Dose: 50 mg Allergies Allergies Allergy/AdvReac Type Severity Reaction Status Date / Time No Known Allergies Allergy Verified 02/28/25 19:21 Assessment & Plan Assessment & Plan (1) HTN (hypertension): Status: Acute Code(s): I10 - Essential (primary) hypertension (2) MDD (major depressive disorder), recurrent episode, moderate: Status: Acute Code(s): F33.1 - Major depressive disorder, recurrent, moderate (3) COPD (chronic obstructive pulmonary disease): Status: Acute Code(s): J44.9 - Chronic obstructive pulmonary disease, unspecified (4) Diabetes mellitus: Status: Acute Code(s): E11.9 - Type 2 diabetes mellitus without complications (5) Alcohol abuse: Status: Acute Code(s): F10.10 - Alcohol abuse, uncomplicated Plan HPI: Patient referred from [facility] ED, he is a 54 years old [place] speaking male with history of hypertension, COPD, kidney stones-left kidney, mass on right kidney and alcohol use, history of type 2 diabetes, history of suicide attempts and history of suicidal thoughts presented via ambulance on a section 12 from [place] police from [facility] after expressing plans to jump off the roof of the parking structure while intoxicated. History of suicide attempts, history of alcohol use, numerous history of detox, history of 1 inpatient level of care many years ago for suicidal thoughts. He has not diagnosed with any psychiatric condition but mood has been on and off, up and down. Formulation/clinical reasoning: Increased stress, increased depression and anxiety 05/12, relapsed on alcohol the past 3 weeks, suicidal thoughts with plan in context of acute medical condition that he just found down he has a mass in the kidney, he also lost his jobs 3 weeks at the same time with the kidneys issues. He has not diagnosed with depression or bipolar before. History of suicide attempts. No outpatient providers, no family support, no system support. Even the above information, patient will be safe to be in the restrictive environment, monitor for safety, for safe detoxing from alcohol, manage medications, and upon discharge, we will refer patient to outpatient psychiatrist and therapist. Hospital course: 02/27/25: He placed diabetic protocol with insulin sliding scale. Placed on CIWA protocol with Ativan p.r.n.. Continue with home medications for hypertension, COPD, diabetic. I have discussed with patient regarding diagnosis. He is not sure if he has manic episode, but mood is up and down, per patient, that was bipolar, was given Prozac which was very bad turn him into a manic. Since then, patient has been reluctant to assess any antidepressants. At this moment, we will continue to see if he has any manic behavior. It is safe to start him on mood stabilizer, then at antidepressants on as a plan for today We will start with Trileptal 300 twice a day for mood. Will continue to monitor for sodium. Low-sodium this morning, most likely from poor meal intake has been consistently drinking the past couple of weeks. We will also held the naltrexone until he is done with detox Continue with melatonin 6 mg at bedtime for insomnia. Trazodone as needed for sleep. Hydroxyzine 50 mg as needed for anxiety and Ativan PRN per CIWA protocol. Trulicpavel and COPD non firmly the inhaler sent to [facility] pharmacy. Hope he can get started tomorrow. 03/02/25: Continue with CIWA protocol which he has not score. No symptoms of withdrawal. Discontinue CIWA plus the Ativan PRNs. Denies safety concerns but reports moderate to severe anxiety and depression. Started Trileptal last night, took the 2nd dose in the morning, reportedly the bit tired, he napped earlier before lunch. Continue with point of care q.i.d.. Was able to shut now with genetic non formula medication. He able to receive the Trulicity today. Reported that he has not been eating well the past 4 weeks due to drinking which could be affect his sodium. Denies history of low-sodium. Plan Patient on 15 minute checks for safety. Admitted to [facility]. CV. Work with treatment team to do collateral for CSS/CCS if possible for aftercare. Refer to patient to microchip specialist. Patient to call rescheduled appointments with facility for his kidneys issues. Contact the hospitalist regarding hospitalist consultation on admission. Lab results from ED: BAL is 236. U tox positive for benzo, BUN 32, ALT and AFT is within normal limit. TSH is 1.80. Sodium is 135. 03/01: Sodium is 144. A1c is 6.5, BUN is 25. We will continue to monitor for sodium as he started the Trileptal. 03/02: CMP for March 03. 03/03: Keeping to self. laying in bed most of day. Patient reports feeling tired but anxious; he reports sleeping well last night. denies SI/HI/VH/AH. Per social media marketer, pt has phone intake with [facility] today. Continue current tx plan. Patient educated on: diagnosis and medication risk/benefits Reason for continued inpatient stay Substantial Risk for: med/psych decompensation Time Spent With Patient Time: Total time managing care of this patient today _20___ minutes.
[2025-03-03 12:01] LABS: Glucose, Whole Blood 141 mg/dL (60-115)
[2025-03-03 17:03] LABS: Glucose, Whole Blood 132 mg/dL (60-115)
[2025-03-03 20:15] VITALS: BP 127/62; PULSE 107; TEMP 37.1; O2SAT 96
[2025-03-03] MEDS: Insulin Glargine,Hum.rec.anlog 100 UNIT/ML 10 ML VIAL 10 UNIT SUBCUT (20:49)
[2025-03-03 20:59] LABS: Glucose, Whole Blood 281 mg/dL (60-115)
[2025-03-04 07:43] LABS: Glucose, Whole Blood 112 mg/dL (60-115)
[2025-03-04 07:56] VITALS: BP 112/60; PULSE 84; RESP 16; TEMP 36.7; O2SAT 94
[2025-03-04] MEDS: Nicotine 21 MG PATCH.TD24 TRANSDERMA (08:32)
[2025-03-04] MEDS: Fluticasone/Umeclidinium/Vilanterol 100/62.5/25 BLST.W.DEV 1 PUFF INHALE (08:32)
[2025-03-04] MEDS: Hydrocortisone 1 % Ointment 28.35 GM TUBE 1 APPL TOPICAL (08:34)
[2025-03-04 12:00] LABS: Glucose, Whole Blood 173 mg/dL (60-115)
[2025-03-04 16:42] LABS: Glucose, Whole Blood 236 mg/dL (60-115)
[2025-03-04 20:10] VITALS: BP 142/71; PULSE 101; RESP 16; TEMP 36.5; O2SAT 98
[2025-03-04 20:33] LABS: Glucose, Whole Blood 216 mg/dL (60-115)
[2025-03-04] MEDS: Insulin Glargine,Hum.rec.anlog 100 UNIT/ML 10 ML VIAL 10 UNIT SUBCUT (21:05)
--- NOTE | 2025-03-04 23:41 | P.PNPSI_ITS ---
Subjective Subjective Date of Service: 03/04/25 Reason For Visit: SI Subjective Notes: Conditional Voluntary Healthcare Proxy: No Guardianship: No Medical Problems Affecting Mental Status: No Interim History: Medical record and nursing notes reviewed; case discussed during rounds with team/nursing staff, and met with patient for supportive therapy/psychoeducation, as well as medication management. Slept for 8 hours, was medication compliant. Wanted Trileptal moved to bedtime so she he does not get so sedated during daytime. Continue reports severe anxiety and depression. Give handout given to patient by nursing regarding antidepressants per his request. He will choose 1 of the antidepressants after reading them. Denies other safety concerns. No hallucinations. Continued to express wanting to go to treatment program which the only way that keep him not drinking. Declines to resume the naltrexone at his does not work. Hydrocortisone moved to as needed. Medication Compliance: Yes (Except for hydrocortisone cream) Side effects from medications: Yes (Tired and sedated during day time yesterday. ) Attending Groups: Yes Review of Systems Acute medical concerns: No Medical Review of Systems: unchanged Review of Systems Review of Systems Denies any shortness of breath, chest pain, dizziness, lightheadedness, abdominal pain or discomfort, nausea vomiting or diarrhea Yes all other systems are reviewed and are negative Mental Status Exam Mental Status Exam Narrative: Pt is alert and oriented; behavior is cooperative but anxious and depressed; dressed in hospital attire; mood is described as anxious and depressed ; eye contact appropriate; Speech is normal rate, volume and not pressured; thought process is organized; Thought content is on tx; denies SI/HI/VH/AH. Diagnostics Vital Signs (24Hr): Vital Signs - 24 hr 03/04/25 07:56 03/04/25 20:10 Temperature 98.0 F 97.7 F Pulse Rate 84 101 H Respiratory Rate 16 16 Blood Pressure 112/60 142/71 H Pulse Oximetry 94 98 Oxygen Delivery Method Room Air Room Air BMI result Body Mass Index 24.8 Labs 03/01/25 08:54 03/03/25 08:19 Labs: Laboratory Results - last 48 hr 03/03/25 03/03/25 03/03/25 07:51 08:19 11:58 Sodium 139 Potassium 4.2 Chloride 102 Carbon Dioxide 27 Anion Gap 14 BUN 24 H Creatinine 0.81 Estim Creat Clear Calc 111.7 Estimated GFR > 60 POC Glucose 127 H 141 H Random Glucose 142 H Calcium 9.3 Total Bilirubin 0.1 AST 26 ALT 30 Alkaline Phosphatase 134 H Total Protein 7.6 Albumin 4.3 03/03/25 03/03/25 03/04/25 17:00 20:48 07:39 Sodium Potassium Chloride Carbon Dioxide Anion Gap BUN Creatinine Estim Creat Clear Calc Estimated GFR POC Glucose 132 H 281 H 112 Random Glucose Calcium Total Bilirubin AST ALT Alkaline Phosphatase Total Protein Albumin 03/04/25 03/04/25 03/04/25 11:56 16:38 20:29 Sodium Potassium Chloride Carbon Dioxide Anion Gap BUN Creatinine Estim Creat Clear Calc Estimated GFR POC Glucose 173 H 236 H 216 H Random Glucose Calcium Total Bilirubin AST ALT Alkaline Phosphatase Total Protein Albumin Medications Medications Current Medications Acetaminophen (Acetaminophen 325 Mg Tablet) 650 mg PO Q6H PRN PRN Reason: Headache/Pain, Scale 1-10 Al Hydroxide/Mg Hydroxide (Magnesium Hydrox/Alum Hydrox 30 Ml Oral.Susp) 30 ml PO Q6H PRN PRN Reason: Heartburn/Nausea Albuterol Sulfate (Albuterol Sulfate 90 Mcg 8 Gm Inhaler) 2 puff INHALE Q4H PRN PRN Reason: Shortness Of Breath Or Wheezing Atorvastatin Calcium (Atorvastatin Calcium 20 Mg Tablet) 20 mg PO DAILY [facility] Last Admin: 03/04/25 08:33 Dose: 20 mg Dextrose (Dextrose 50 % 25 Gm/50 Ml Syringe) 25 gm IVPUSH Q15M PRN; Protocol PRN Reason: per Hypoglycemia Standing Ord. Fluticasone/Umeclidinium/Vilanterol (Fluticasone/Umeclidinium/Vilanterol 100/62.5/25 Blst.W.Dev) 1 puff INHALE RDAILY [facility] Last Admin: 03/04/25 08:32 Dose: 1 puff Folic Acid (Folic Acid 1 Mg Tablet) 1 mg PO DAILY [facility] Last Admin: 03/04/25 08:35 Dose: 1 mg Glucose (Glucose Gel 15 Gm Gel..Gram.) 15 gm PO Q15M PRN; Protocol PRN Reason: per Hypoglycemia Standing Ord. Hydrocortisone (Hydrocortisone 1 % Ointment 28.35 Gm Tube) 1 appl TOPICAL BID [facility]; Protocol Last Admin: 03/04/25 21:12 Dose: Not Given Hydroxyzine HCl (Hydroxyzine Hcl 25 Mg Tablet) 25 mg PO TID PRN PRN Reason: Anxiety Last Admin: 03/04/25 21:08 Dose: 25 mg Insulin Glargine (Insulin Glargine,Hum.Rec.Anlog 100 Unit/Ml 10 Ml Vial) 10 unit SUBCUT BEDTIME [facility] Last Admin: 03/04/25 21:05 Dose: 10 unit Insulin Human Lispro (Insulin Lispro 100 Unit/Ml 3 Ml Vial) 0 unit SUBCUT QIDACHS [facility]; Protocol Last Admin: 03/04/25 21:06 Dose: 4 unit Lisinopril (Lisinopril 10 Mg Tablet) 10 mg PO DAILY [facility]; Protocol Last Admin: 03/04/25 08:33 Dose: 10 mg Magnesium Hydroxide (Milk Of Magnesia 30 Ml Oral.Susp) 30 ml PO DAILY PRN PRN Reason: Constipation Melatonin (Melatonin 3 Mg Tablet) 6 mg PO BEDTIME [facility] Last Admin: 03/04/25 21:08 Dose: 6 mg Multivitamins/Vitamin C (Multivitamin Tablet) 1 tab PO DAILY [facility] Last Admin: 03/04/25 08:15 Dose: 1 tab Naltrexone HCl (Naltrexone Hcl 50 Mg Tablet) 50 mg PO DAILY [facility] On Hold: 03/01/25 19:53 Last Admin: 03/01/25 08:32 Dose: 50 mg Nicotine (Nicotine 21 Mg Patch.Td24) 21 mg TRANSDERMA DAILY [facility] Last Admin: 03/04/25 08:32 Dose: 21 mg Nicotine Polacrilex (Nicotine Polacrilex 2 Mg Gum) 2 mg BUCCAL Q1H PRN PRN Reason: Nicotine Cravings Last Admin: 03/03/25 14:02 Dose: 2 mg Pt Owned (Trulicity (1.5mg / 0.5ml)) 1 each SUBCUT We [facility] Last Admin: 03/02/25 10:20 Dose: 1 each Olanzapine (Olanzapine 5 Mg Tablet) 5 mg PO BID PRN PRN Reason: agitation Last Admin: 03/04/25 14:56 Dose: 5 mg Oxcarbazepine (Oxcarbazepine 300 Mg Tablet) 600 mg PO BEDTIME [facility] Last Admin: 03/04/25 21:08 Dose: 600 mg Thiamine HCl (Thiamine Hcl 100 Mg Tablet) 100 mg PO DAILY [facility] Last Admin: 03/04/25 08:33 Dose: 100 mg Trazodone HCl (Trazodone Hcl 50 Mg Tablet) 50 mg PO BEDTIME MRX1 PRN PRN Reason: Insomnia Last Admin: 03/04/25 21:08 Dose: 50 mg Allergies Allergies Allergy/AdvReac Type Severity Reaction Status Date / Time No Known Allergies Allergy Verified 02/28/25 19:21 Assessment & Plan Assessment & Plan (1) HTN (hypertension): Status: Acute Code(s): I10 - Essential (primary) hypertension (2) MDD (major depressive disorder), recurrent episode, moderate: Status: Acute Code(s): F33.1 - Major depressive disorder, recurrent, moderate (3) COPD (chronic obstructive pulmonary disease): Status: Acute Code(s): J44.9 - Chronic obstructive pulmonary disease, unspecified (4) Diabetes mellitus: Status: Acute Code(s): E11.9 - Type 2 diabetes mellitus without complications (5) Alcohol abuse: Status: Acute Code(s): F10.10 - Alcohol abuse, uncomplicated Plan HPI: Patient referred from [facility] ED, he is a 54 years old Bulgarian speaking male with history of hypertension, COPD, kidney stones-left kidney, mass on right kidney and alcohol use, history of type 2 diabetes, history of suicide attempts and history of suicidal thoughts presented via ambulance on a section 12 from [place] police from [facility] after expressing plans to jump off the roof of the parking structure while intoxicated. History of suicide attempts, history of alcohol use, numerous history of detox, history of 1 inpatient level of care many years ago for suicidal thoughts. He has not diagnosed with any psychiatric condition but mood has been on and off, up and down. Formulation/clinical reasoning: Increased stress, increased depression and anxiety 05/12, relapsed on alcohol the past 3 weeks, suicidal thoughts with plan in context of acute medical condition that he just found down he has a mass in the kidney, he also lost his jobs 3 weeks at the same time with the kidneys issues. He has not diagnosed with depression or bipolar before. History of suicide attempts. No outpatient providers, no family support, no system support. Even the above information, patient will be safe to be in the restrictive environment, monitor for safety, for safe detoxing from alcohol, manage medications, and upon discharge, we will refer patient to outpatient psychiatrist and therapist. Hospital course: 02/27/25: He placed diabetic protocol with insulin sliding scale. Placed on CIWA protocol with Ativan p.r.n.. Continue with home medications for hypertension, COPD, diabetic. I have discussed with patient regarding diagnosis. He is not sure if he has manic episode, but mood is up and down, per patient, that was bipolar, was given Prozac which was very bad turn him into a manic. Since then, patient has been reluctant to assess any antidepressants. At this moment, we will continue to see if he has any manic behavior. It is safe to start him on mood stabilizer, then at antidepressants on as a plan for today We will start with Trileptal 300 twice a day for mood. Will continue to monitor for sodium. Low-sodium this morning, most likely from poor meal intake has been consistently drinking the past couple of weeks. We will also held the naltrexone until he is done with detox Continue with melatonin 6 mg at bedtime for insomnia. Trazodone as needed for sleep. Hydroxyzine 50 mg as needed for anxiety and Ativan PRN per CIWA protocol. Trulicity and COPD non firmly the inhaler sent to [facility] [place]. Hope he can get started tomorrow. 03/02/25: Continue with CIWA protocol which he has not score. No symptoms of withdrawal. Discontinue CIWA plus the Ativan PRNs. Denies safety concerns but reports moderate to severe anxiety and depression. Started Trileptal last night, took the 2nd dose in the morning, reportedly the bit tired, he napped earlier before lunch. Continue with point of care q.i.d.. Was able to shut now with genetic non formula medication. He able to receive the Trulicity today. Reported that he has not been eating well the past 4 weeks due to drinking which could be affect his sodium. Denies history of low-sodium. 03/03: Keeping to self. laying in bed most of day. Patient reports feeling tired but anxious; he reports sleeping well last night. denies SI/HI/VH/AH. Per social worker delinquency prevention, pt has phone intake with [facility] today. Continue current tx plan. 03/04/25:Slept for 8 hours, was medication compliant. Wanted Trileptal moved to bedtime so she he does not get so sedated during daytime. Continue reports severe anxiety and depression. Give handout given to patient by nursing regarding antidepressants per his request. He will choose 1 of the antidepressants after reading them. Denies other safety concerns. No hallucinations. Continued to express wanting to go to treatment program which the only way that keep him not drinking. Declines to resume the naltrexone at his does not work. Hydrocortisone moved to as needed. Normal sodium level. Plan Patient on 15 minute checks for safety. Admitted to [facility]. CV. Work with treatment team to do collateral for CSS/CCS if possible for aftercare. Refer to patient to radiologic electronic specialist. Patient to call rescheduled appointments with facility for his kidneys issues. Contact the hospitalist regarding hospitalist consultation on admission. Lab results from ED: BAL is 236. U tox positive for benzo, BUN 32, ALT and AFT is within normal limit. TSH is 1.80. Sodium is 135. 03/01: Sodium is 144. A1c is 6.5, BUN is 25. We will continue to monitor for sodium as he started the Trileptal. 03/02: CMP for March 03: 139 WNL. Patient educated on: diagnosis, medication risk/benefits, substance abuse and therapeutic strategies Informed Consent: understands Reason for continued inpatient stay Substantial Risk for: med/psych decompensation Time Spent With Patient Time: Total time managing care of this patient today ____ minutes.
[2025-03-05 07:54] LABS: Glucose, Whole Blood 152 mg/dL (60-115)
[2025-03-05 08:00] VITALS: BP 103/58; PULSE 80; RESP 20; TEMP 36.9; O2SAT 94
[2025-03-05] MEDS: Fluticasone/Umeclidinium/Vilanterol 100/62.5/25 BLST.W.DEV 1 PUFF INHALE (08:00)
[2025-03-05 12:02] LABS: Glucose, Whole Blood 149 mg/dL (60-115)
[2025-03-05 16:42] LABS: Glucose, Whole Blood 201 mg/dL (60-115)
[2025-03-05 20:00] VITALS: BP 132/69; PULSE 90; RESP 16; TEMP 36.8; O2SAT 99
[2025-03-05 21:14] LABS: Glucose, Whole Blood 283 mg/dL (60-115)
[2025-03-05] MEDS: Insulin Glargine,Hum.rec.anlog 100 UNIT/ML 10 ML VIAL 10 UNIT SUBCUT (21:23)
--- NOTE | 2025-03-05 22:20 | P.PNPSI_ITS ---
Subjective Subjective Date of Service: 03/05/25 Reason For Visit: SI Subjective Notes: Conditional Voluntary Healthcare Proxy: No Guardianship: No Medical Problems Affecting Mental Status: No Interim History: Medical record and nursing notes reviewed; case discussed during rounds with team/nursing staff, and met with patient for supportive therapy/psychoeducation, as well as medication management. Patient slept for 7.5 hours, contracture trazodone due to a roommate moving around at night. Reports high in depression and anxiety, worry about placement, he is visible, attended groups, or reading in his room. He decided to choose Zoloft among other antidepressants for anxiety depression. Denies other safety concerns. We will monitor for any manic behavior. Medication Compliance: Yes Side effects from medications: Yes Attending Groups: Intermittent Review of Systems Acute medical concerns: No Medical Review of Systems: unchanged Review of Systems Review of Systems Denies any shortness of breath, chest pain, dizziness, lightheadedness, abdominal pain or discomfort, nausea vomiting or diarrhea Yes all other systems are reviewed and are negative Mental Status Exam Mental Status Exam Narrative: Pt is alert and oriented; behavior is cooperative but anxious and depressed; dressed in hospital attire; mood is described as anxious and depressed ; eye contact appropriate; Speech is normal rate, volume and not pressured; thought process is organized; Thought content is on tx; denies SI/HI/VH/AH. Diagnostics Vital Signs (24Hr): Vital Signs - 24 hr 03/05/25 08:00 Temperature 98.4 F Pulse Rate 80 Respiratory Rate 20 Blood Pressure 103/58 L Pulse Oximetry 94 Oxygen Delivery Method Room Air BMI result Body Mass Index 24.8 Labs 03/01/25 08:54 03/03/25 08:19 Labs: Laboratory Results - last 48 hr 03/04/25 03/04/25 03/04/25 07:39 11:56 16:38 POC Glucose 112 173 H 236 H 03/04/25 03/05/25 03/05/25 20:29 07:46 11:58 POC Glucose 216 H 152 H 149 H 03/05/25 03/05/25 16:38 21:09 POC Glucose 201 H 283 H Medications Medications Current Medications Acetaminophen (Acetaminophen 325 Mg Tablet) 650 mg PO Q6H PRN PRN Reason: Headache/Pain, Scale 1-10 Al Hydroxide/Mg Hydroxide (Magnesium Hydrox/Alum Hydrox 30 Ml Oral.Susp) 30 ml PO Q6H PRN PRN Reason: Heartburn/Nausea Albuterol Sulfate (Albuterol Sulfate 90 Mcg 8 Gm Inhaler) 2 puff INHALE Q4H PRN PRN Reason: Shortness Of Breath Or Wheezing Atorvastatin Calcium (Atorvastatin Calcium 20 Mg Tablet) 20 mg PO DAILY [facility] Last Admin: 03/05/25 08:01 Dose: 20 mg Dextrose (Dextrose 50 % 25 Gm/50 Ml Syringe) 25 gm IVPUSH Q15M PRN; Protocol PRN Reason: per Hypoglycemia Standing Ord. Fluticasone/Umeclidinium/Vilanterol (Fluticasone/Umeclidinium/Vilanterol 100/62.5/25 Blst.W.Dev) 1 puff INHALE RDAILY [facility] Last Admin: 03/05/25 08:00 Dose: 1 puff Folic Acid (Folic Acid 1 Mg Tablet) 1 mg PO DAILY [facility] Last Admin: 03/05/25 08:01 Dose: 1 mg Glucose (Glucose Gel 15 Gm Gel..Gram.) 15 gm PO Q15M PRN; Protocol PRN Reason: per Hypoglycemia Standing Ord. Hydrocortisone (Hydrocortisone 1 % Ointment 28.35 Gm Tube) 1 appl TOPICAL BID PRN; Protocol PRN Reason: rash on face Hydroxyzine HCl (Hydroxyzine Hcl 25 Mg Tablet) 25 mg PO TID PRN PRN Reason: Anxiety Last Admin: 03/04/25 21:08 Dose: 25 mg Insulin Glargine (Insulin Glargine,Hum.Rec.Anlog 100 Unit/Ml 10 Ml Vial) 10 unit SUBCUT BEDTIME [facility] Last Admin: 03/05/25 21:23 Dose: 10 unit Insulin Human Lispro (Insulin Lispro 100 Unit/Ml 3 Ml Vial) 0 unit SUBCUT QIDACHS [facility]; Protocol Last Admin: 03/05/25 21:25 Dose: 6 unit Lisinopril (Lisinopril 10 Mg Tablet) 10 mg PO DAILY [facility]; Protocol Last Admin: 03/05/25 08:01 Dose: 10 mg Magnesium Hydroxide (Milk Of Magnesia 30 Ml Oral.Susp) 30 ml PO DAILY PRN PRN Reason: Constipation Melatonin (Melatonin 3 Mg Tablet) 6 mg PO BEDTIME [facility] Last Admin: 03/05/25 21:23 Dose: 6 mg Multivitamins/Vitamin C (Multivitamin Tablet) 1 tab PO DAILY [facility] Last Admin: 03/05/25 08:01 Dose: 1 tab Naltrexone HCl (Naltrexone Hcl 50 Mg Tablet) 50 mg PO DAILY [facility] On Hold: 03/01/25 19:53 Last Admin: 03/01/25 08:32 Dose: 50 mg Nicotine (Nicotine 21 Mg Patch.Td24) 21 mg TRANSDERMA DAILY [facility] Last Admin: 03/05/25 08:58 Dose: Not Given Nicotine Polacrilex (Nicotine Polacrilex 2 Mg Gum) 2 mg BUCCAL Q1H PRN PRN Reason: Nicotine Cravings Last Admin: 03/05/25 14:06 Dose: 2 mg Pt Owned (Trulicity (1.5mg / 0.5ml)) 1 each SUBCUT We [facility] Last Admin: 03/02/25 10:20 Dose: 1 each Olanzapine (Olanzapine 5 Mg Tablet) 5 mg PO BID PRN PRN Reason: agitation Last Admin: 03/05/25 21:23 Dose: 5 mg Oxcarbazepine (Oxcarbazepine 300 Mg Tablet) 600 mg PO BEDTIME [facility] Last Admin: 03/05/25 21:22 Dose: 600 mg Sertraline HCl (Sertraline Hcl 50 Mg Tablet) 50 mg PO DAILY [facility] Last Admin: 03/05/25 15:02 Dose: 50 mg Thiamine HCl (Thiamine Hcl 100 Mg Tablet) 100 mg PO DAILY [facility] Last Admin: 03/05/25 08:01 Dose: 100 mg Trazodone HCl (Trazodone Hcl 50 Mg Tablet) 50 mg PO BEDTIME MRX1 PRN PRN Reason: Insomnia Last Admin: 03/05/25 21:23 Dose: 50 mg Allergies Allergies Allergy/AdvReac Type Severity Reaction Status Date / Time No Known Allergies Allergy Verified 02/28/25 19:21 Assessment & Plan Assessment & Plan (1) HTN (hypertension): Status: Acute Code(s): I10 - Essential (primary) hypertension (2) MDD (major depressive disorder), recurrent episode, moderate: Status: Acute Code(s): F33.1 - Major depressive disorder, recurrent, moderate (3) COPD (chronic obstructive pulmonary disease): Status: Acute Code(s): J44.9 - Chronic obstructive pulmonary disease, unspecified (4) Diabetes mellitus: Status: Acute Code(s): E11.9 - Type 2 diabetes mellitus without complications (5) Alcohol abuse: Status: Acute Code(s): F10.10 - Alcohol abuse, uncomplicated Plan HPI: Patient referred from [facility] ED, he is a 54 years old Macedonian speaking male with history of hypertension, COPD, kidney stones-left kidney, mass on right kidney and alcohol use, history of type 2 diabetes, history of suicide attempts and history of suicidal thoughts presented via ambulance on a section 12 from [place] police from [facility] after expressing plans to jump off the roof of the parking structure while intoxicated. History of suicide attempts, history of alcohol use, numerous history of detox, history of 1 inpatient level of care many years ago for suicidal thoughts. He has not diagnosed with any psychiatric condition but mood has been on and off, up and down. Formulation/clinical reasoning: Increased stress, increased depression and anxiety 05/12, relapsed on alcohol the past 3 weeks, suicidal thoughts with plan in context of acute medical condition that he just found down he has a mass in the kidney, he also lost his jobs 3 weeks at the same time with the kidneys issues. He has not diagnosed with depression or bipolar before. History of suicide attempts. No outpatient providers, no family support, no system support. Even the above information, patient will be safe to be in the restrictive environment, monitor for safety, for safe detoxing from alcohol, manage medications, and upon discharge, we will refer patient to outpatient psychiatrist and therapist. Hospital course: 02/27/25: He placed diabetic protocol with insulin sliding scale. Placed on CIWA protocol with Ativan p.r.n.. Continue with home medications for hypertension, COPD, diabetic. I have discussed with patient regarding diagnosis. He is not sure if he has manic episode, but mood is up and down, per patient, that was bipolar, was given Prozac which was very bad turn him into a manic. Since then, patient has been reluctant to assess any antidepressants. At this moment, we will continue to see if he has any manic behavior. It is safe to start him on mood stabilizer, then at antidepressants on as a plan for today We will start with Trileptal 300 twice a day for mood. Will continue to monitor for sodium. Low-sodium this morning, most likely from poor meal intake has been consistently drinking the past couple of weeks. We will also held the naltrexone until he is done with detox Continue with melatonin 6 mg at bedtime for insomnia. Trazodone as needed for sleep. Hydroxyzine 50 mg as needed for anxiety and Ativan PRN per CIWA protocol. Trulicity and COPD non firmly the inhaler sent to [facility] pharmacy. Hope he can get started tomorrow. 03/02/25: Continue with CIWA protocol which he has not score. No symptoms of withdrawal. Discontinue CIWA plus the Ativan PRNs. Denies safety concerns but reports moderate to severe anxiety and depression. Started Trileptal last night, took the 2nd dose in the morning, reportedly the bit tired, he napped earlier before lunch. Continue with point of care q.i.d.. Was able to shut now with genetic non formula medication. He able to receive the Trulicity today. Reported that he has not been eating well the past 4 weeks due to drinking which could be affect his sodium. Denies history of low-sodium. 03/03: Keeping to self. laying in bed most of day. Patient reports feeling tired but anxious; he reports sleeping well last night. denies SI/HI/VH/AH. Per pediatric social worker, pt has phone intake with [facility] today. Continue current tx plan. 03/04/25:Slept for 8 hours, was medication compliant. Wanted Trileptal moved to bedtime so she he does not get so sedated during daytime. Continue reports severe anxiety and depression. Give handout given to patient by nursing regarding antidepressants per his request. He will choose 1 of the antidepressants after reading them. Denies other safety concerns. No hallucinations. Continued to express wanting to go to treatment program which the only way that keep him not drinking. Declines to resume the naltrexone at his does not work. Hydrocortisone moved to as needed. Normal sodium level. 03/05/25: Patient slept for 7.5 hours, contracture trazodone due to a roommate moving around at night. Reports high in depression and anxiety, worry about placement, he is visible, attended groups, or reading in his room. He decided to choose Zoloft among other antidepressants for anxiety depression. Denies other safety concerns. We will monitor for any manic behavior. He was informed the sodium level. Zoloft 50 mg daily. First dose given today. Plan Patient on 15 minute checks for safety. Admitted to [facility]. CV. Work with treatment team to do collateral for CSS/CCS if possible for aftercare. Refer to patient to radiologic electronic specialist. Patient to call rescheduled appointments with facility for his kidneys issues. Contact the hospitalist regarding hospitalist consultation on admission. Lab results from ED: BAL is 236. U tox positive for benzo, BUN 32, ALT and AFT is within normal limit. TSH is 1.80. Sodium is 135. 03/01: Sodium is 144. A1c is 6.5, BUN is 25. We will continue to monitor for sodium as he started the Trileptal. 03/02: CMP for March 03: 139 WNL. Patient educated on: diagnosis, medication risk/benefits, substance abuse and therapeutic strategies Informed Consent: understands Reason for continued inpatient stay Substantial Risk for: med/psych decompensation Time Spent With Patient Time: Total time managing care of this patient today ____ minutes.
[2025-03-06 07:50] LABS: Glucose, Whole Blood 177 mg/dL (60-115)
[2025-03-06 08:00] VITALS: BP 118/68; PULSE 75; RESP 16; TEMP 36.4; O2SAT 96
[2025-03-06 08:06] VITALS: BP 118/63
[2025-03-06] MEDS: Fluticasone/Umeclidinium/Vilanterol 100/62.5/25 BLST.W.DEV 1 PUFF INHALE (08:10)
[2025-03-06 12:11] LABS: Glucose, Whole Blood 166 mg/dL (60-115)
[2025-03-06] MEDS: buPROPion HCl XL 150 MG TAB.ER.24H PO (12:11)
--- NOTE | 2025-03-06 14:56 | P.PNPSI_ITS ---
Subjective Subjective Date of Service: 03/06/25 Reason For Visit: SI Interim History: calm, cooperative, pleasant. denies safety concerns. discuss FH or father with completed suicide and bad rxn to prozac. agrees to DC zoloft and trileptal and start wellbutrin. R/B discussed, including Sz and agitation, restlessness, insomnia. awaiting bed at [facility]. per staff, cv, 15s, started sertraline yesterday. had a phone intake with [facility] on thursday. [facility] no behavior issues. Mental Status Exam Mental Status Exam Narrative: Pt is alert and oriented; behavior is cooperative and calm; dressed in own attire; mood is described as a little more hopeful; eye contact appropriate; Speech is normal rate, volume and not pressured; thought process is organized, linear; Thought content is on tx; denies SI/HI/VH/AH. Diagnostics Vital Signs (24Hr): Vital Signs - 24 hr 03/05/25 20:00 03/06/25 08:06 Temperature 98.2 F Pulse Rate 90 Respiratory Rate 16 Blood Pressure 132/69 118/63 Pulse Oximetry 99 Oxygen Delivery Method Room Air BMI result Body Mass Index 24.8 Labs 03/01/25 08:54 03/03/25 08:19 Labs: Laboratory Results - last 48 hr 03/04/25 03/04/25 03/05/25 16:38 20:29 07:46 POC Glucose 236 H 216 H 152 H 03/05/25 03/05/25 03/05/25 11:58 16:38 21:09 POC Glucose 149 H 201 H 283 H 03/06/25 03/06/25 07:45 12:08 POC Glucose 177 H 166 H Medications Medications Current Medications Acetaminophen (Acetaminophen 325 Mg Tablet) 650 mg PO Q6H PRN PRN Reason: Headache/Pain, Scale 1-10 Al Hydroxide/Mg Hydroxide (Magnesium Hydrox/Alum Hydrox 30 Ml Oral.Susp) 30 ml PO Q6H PRN PRN Reason: Heartburn/Nausea Albuterol Sulfate (Albuterol Sulfate 90 Mcg 8 Gm Inhaler) 2 puff INHALE Q4H PRN PRN Reason: Shortness Of Breath Or Wheezing Atorvastatin Calcium (Atorvastatin Calcium 20 Mg Tablet) 20 mg PO DAILY [facility] Last Admin: 03/06/25 08:06 Dose: 20 mg Bupropion HCl (Bupropion Hcl Xl 150 Mg Tab.Er.24h) 150 mg PO DAILY [facility] Last Admin: 03/06/25 12:11 Dose: 150 mg Dextrose (Dextrose 50 % 25 Gm/50 Ml Syringe) 25 gm IVPUSH Q15M PRN; Protocol PRN Reason: per Hypoglycemia Standing Ord. Fluticasone/Umeclidinium/Vilanterol (Fluticasone/Umeclidinium/Vilanterol 100/62.5/25 Blst.W.Dev) 1 puff INHALE RDAILY [facility] Last Admin: 03/06/25 08:10 Dose: 1 puff Folic Acid (Folic Acid 1 Mg Tablet) 1 mg PO DAILY [facility] Last Admin: 03/06/25 08:10 Dose: 1 mg Glucose (Glucose Gel 15 Gm Gel..Gram.) 15 gm PO Q15M PRN; Protocol PRN Reason: per Hypoglycemia Standing Ord. Hydrocortisone (Hydrocortisone 1 % Ointment 28.35 Gm Tube) 1 appl TOPICAL BID PRN; Protocol PRN Reason: rash on face Hydroxyzine HCl (Hydroxyzine Hcl 25 Mg Tablet) 25 mg PO TID PRN PRN Reason: Anxiety Last Admin: 03/04/25 21:08 Dose: 25 mg Insulin Glargine (Insulin Glargine,Hum.Rec.Anlog 100 Unit/Ml 10 Ml Vial) 10 unit SUBCUT BEDTIME [facility] Last Admin: 03/05/25 21:23 Dose: 10 unit Insulin Human Lispro (Insulin Lispro 100 Unit/Ml 3 Ml Vial) 0 unit SUBCUT QIDACHS [facility]; Protocol Last Admin: 03/06/25 12:12 Dose: 2 unit Lisinopril (Lisinopril 10 Mg Tablet) 10 mg PO DAILY [facility]; Protocol Last Admin: 03/06/25 08:06 Dose: 10 mg Magnesium Hydroxide (Milk Of Magnesia 30 Ml Oral.Susp) 30 ml PO DAILY PRN PRN Reason: Constipation Melatonin (Melatonin 3 Mg Tablet) 6 mg PO BEDTIME [facility] Last Admin: 03/05/25 21:23 Dose: 6 mg Multivitamins/Vitamin C (Multivitamin Tablet) 1 tab PO DAILY [facility] Last Admin: 03/06/25 08:07 Dose: 1 tab Naltrexone HCl (Naltrexone Hcl 50 Mg Tablet) 50 mg PO DAILY [facility] On Hold: 03/01/25 19:53 Last Admin: 03/01/25 08:32 Dose: 50 mg Nicotine (Nicotine 21 Mg Patch.Td24) 21 mg TRANSDERMA DAILY [facility] Last Admin: 03/06/25 08:11 Dose: Not Given Nicotine Polacrilex (Nicotine Polacrilex 2 Mg Gum) 2 mg BUCCAL Q1H PRN PRN Reason: Nicotine Cravings Last Admin: 03/05/25 14:06 Dose: 2 mg Pt Owned (Trulicity (1.5mg / 0.5ml)) 1 each SUBCUT We [facility] Last Admin: 03/02/25 10:20 Dose: 1 each Olanzapine (Olanzapine 5 Mg Tablet) 5 mg PO BID PRN PRN Reason: agitation Last Admin: 03/06/25 08:13 Dose: 5 mg Oxcarbazepine (Oxcarbazepine 300 Mg Tablet) 300 mg PO BEDTIME [facility] Thiamine HCl (Thiamine Hcl 100 Mg Tablet) 100 mg PO DAILY [facility] Last Admin: 03/06/25 08:07 Dose: 100 mg Trazodone HCl (Trazodone Hcl 50 Mg Tablet) 50 mg PO BEDTIME MRX1 PRN PRN Reason: Insomnia Last Admin: 03/05/25 21:23 Dose: 50 mg Allergies Allergies Allergy/AdvReac Type Severity Reaction Status Date / Time No Known Allergies Allergy Verified 02/28/25 19:21 Assessment & Plan Assessment & Plan (1) HTN (hypertension): Status: Acute Code(s): I10 - Essential (primary) hypertension (2) MDD (major depressive disorder), recurrent episode, moderate: Status: Acute Code(s): F33.1 - Major depressive disorder, recurrent, moderate (3) COPD (chronic obstructive pulmonary disease): Status: Acute Code(s): J44.9 - Chronic obstructive pulmonary disease, unspecified (4) Diabetes mellitus: Status: Acute Code(s): E11.9 - Type 2 diabetes mellitus without complications (5) Alcohol abuse: Status: Acute Code(s): F10.10 - Alcohol abuse, uncomplicated Plan HPI: Patient referred from [facility] ED, he is a 54 years old Nepali speaking male with history of hypertension, COPD, kidney stones-left kidney, mass on right kidney and alcohol use, history of type 2 diabetes, history of suicide attempts and history of suicidal thoughts presented via ambulance on a section 12 from [place] police from [facility] after expressing plans to jump off the roof of the parking structure while intoxicated. History of suicide attempts, history of alcohol use, numerous history of detox, history of 1 inpatient level of care many years ago for suicidal thoughts. He has not diagnosed with any psychiatric condition but mood has been on and off, up and down. Formulation/clinical reasoning: Increased stress, increased depression and anxiety 05/12, relapsed on alcohol the past 3 weeks, suicidal thoughts with plan in context of acute medical condition that he just found down he has a mass in the kidney, he also lost his jobs 3 weeks at the same time with the kidneys issues. He has not diagnosed with depression or bipolar before. History of suicide attempts. No outpatient providers, no family support, no system support. Even the above information, patient will be safe to be in the restrictive environment, monitor for safety, for safe detoxing from alcohol, manage medications, and upon discharge, we will refer patient to outpatient psychiatrist and therapist. Hospital course: 02/27/25: He placed diabetic protocol with insulin sliding scale. Placed on CIWA protocol with Ativan p.r.n.. Continue with home medications for hypertension, COPD, diabetic. I have discussed with patient regarding diagnosis. He is not sure if he has manic episode, but mood is up and down, per patient, that was bipolar, was given Prozac which was very bad turn him into a manic. Since then, patient has been reluctant to assess any antidepressants. At this moment, we will continue to see if he has any manic behavior. It is safe to start him on mood stabilizer, then at antidepressants on as a plan for today We will start with Trileptal 300 twice a day for mood. Will continue to monitor for sodium. Low-sodium this morning, most likely from poor meal intake has been consistently drinking the past couple of weeks. We will also held the naltrexone until he is done with detox Continue with melatonin 6 mg at bedtime for insomnia. Trazodone as needed for sleep. Hydroxyzine 50 mg as needed for anxiety and Ativan PRN per CIWA protocol. Trulicity and COPD non firmly the inhaler sent to [facility] pharmacy. Hope he can get started tomorrow. 03/02/25: Continue with CIWA protocol which he has not score. No symptoms of withdrawal. Discontinue CIWA plus the Ativan PRNs. Denies safety concerns but reports moderate to severe anxiety and depression. Started Trileptal last night, took the 2nd dose in the morning, reportedly the bit tired, he napped earlier before lunch. Continue with point of care q.i.d.. Was able to shut now with genetic non formula medication. He able to receive the Trulicity today. Reported that he has not been eating well the past 4 weeks due to drinking which could be affect his sodium. Denies history of low-sodium. 03/03: Keeping to self. laying in bed most of day. Patient reports feeling tired but anxious; he reports sleeping well last night. denies SI/HI/VH/AH. Per social media assistant, pt has phone intake with [facility] today. Continue current tx plan. 03/04/25:Slept for 8 hours, was medication compliant. Wanted Trileptal moved to bedtime so she he does not get so sedated during daytime. Continue reports severe anxiety and depression. Give handout given to patient by nursing regarding antidepressants per his request. He will choose 1 of the antidepressants after reading them. Denies other safety concerns. No hallucinations. Continued to express wanting to go to treatment program which the only way that keep him not drinking. Declines to resume the naltrexone at his does not work. Hydrocortisone moved to as needed. Normal sodium level. 03/05/25: Patient slept for 7.5 hours, contracture trazodone due to a roommate moving around at night. Reports high in depression and anxiety, worry about placement, he is visible, attended groups, or reading in his room. He decided to choose Zoloft among other antidepressants for anxiety depression. Denies other safety concerns. We will monitor for any manic behavior. He was informed the sodium level. Zoloft 50 mg daily. First dose given today. 03/06: DC zoloft and trileptal, start wellbutrin for depression. FH supportive of bipolar diathesis, but pt has h/o depression only. reports father reacted poorly to prozac but sister tolerated zoloft well. no quan Hx in pt. awaiting word from rehabs. Plan Patient on 15 minute checks for safety. Admitted to M3. CV. Work with treatment team to do collateral for CSS/CCS if possible for aftercare. Refer to patient to production support specialist. Patient to call rescheduled appointments with facility for his kidneys issues. Contact the hospitalist regarding hospitalist consultation on admission. Lab results from ED: BAL is 236. U tox positive for benzo, BUN 32, ALT and AFT is within normal limit. TSH is 1.80. Sodium is 135. 03/01: Sodium is 144. A1c is 6.5, BUN is 25. We will continue to monitor for sodium as he started the Trileptal. 03/02: CMP for March 03: 139 WNL. Reason for continued inpatient stay Substantial Risk for: inability to function Time Spent With Patient Time: Total time managing care of this patient today _25___ minutes.
[2025-03-06 16:52] LABS: Glucose, Whole Blood 257 mg/dL (60-115)
[2025-03-06 20:20] VITALS: BP 129/65; PULSE 95; RESP 16; TEMP 36.1; O2SAT 97
[2025-03-06 20:44] LABS: Glucose, Whole Blood 288 mg/dL (60-115)
[2025-03-06] MEDS: Insulin Glargine,Hum.rec.anlog 100 UNIT/ML 10 ML VIAL 10 UNIT SUBCUT (21:11)
[2025-03-07 07:46] LABS: Glucose, Whole Blood 167 mg/dL (60-115)
[2025-03-07 08:02] VITALS: BP 127/64; PULSE 97; RESP 16; TEMP 37.4; O2SAT 95
[2025-03-07] MEDS: buPROPion HCl XL 150 MG TAB.ER.24H PO (08:15)
[2025-03-07] MEDS: Fluticasone/Umeclidinium/Vilanterol 100/62.5/25 BLST.W.DEV 1 PUFF INHALE (08:17)
--- NOTE | 2025-03-07 10:17 | P.DS_ITS ---
DS: Providers Provider Date of Service: 03/07/25 Date of admission: 02/28/25 18:39 Date of discharge: 03/07/25 Primary care physician: Karlie Pearce APRN Consults: 02/28/25 19:54 Consult to Hospitalist Routine Comment: [place] [facility] [place] Reason For Exam: New external admit0 H&P 03/01/25 20:44 Addiction Medicine Provider Routine Consulting Provider: Addiction Covering Reason for consultation: Alcohol abuse. Has provider been notified: No DS: Diagnosis Discharge Diagnosis (1) HTN (hypertension): Status: Acute (2) MDD (major depressive disorder), recurrent episode, moderate: Status: Acute (3) COPD (chronic obstructive pulmonary disease): Status: Acute (4) Diabetes mellitus: Status: Acute (5) Alcohol abuse: Status: Acute DS: Medications Discharge Medications Home Medications: Previous Rx's ?Medication ?Instructions ?Recorded ketoconazole 2 % topical cream 1 appl topical DAILY ra sh #15 03/02/25 grams albuterol sulfate 90 mcg/actuation 2 puff inhalation Q 4-6H PRN 03/07/25 aerosol inhaler (Ventolin HFA) Shortness Of Breath Or Wheezing 30 days #1 inhaler bupropion HCl 150 mg 24 hr tablet, 150 mg PO DAILY 30 days #30 tabs 03/07/25 extended release dulaglutide 1.5 mg/0.5 mL 1.5 mg (0.5 mL) subcut QWEEK 30 03/07/25 subcutaneous pen injector days #2.5 mL (Trulicity) fluticasone fur. 100 mcg-umeclid 1 inh inhalation RDAI LY 30 days #1 03/07/25 62.5 mcg-vilant 25 mcg inhaler inhalat.powder (Trelegy Ellipta) folic acid 1 mg tablet 1 mg PO DAILY 30 days #30 ta bs 03/07/25 insulin glargine 100 unit/mL (3 10 unit (0.1 mL) subcu t BEDTIME 30 03/07/25 mL) subcutaneous pen (Lantus days #3 mL Solostar U-100 Insulin) lisinopril 10 mg tablet 10 mg PO DAILY 30 days #30 t abs 03/07/25 melatonin 3 mg tablet 6 mg (2 x 3 mg) PO BEDTIME 3 0 days 03/07/25 #60 tabs multivitamin with folic acid 400 1 tab PO DAILY 30 day s #30 tabs 03/07/25 mcg tablet (Daily-Fady (with folic acid)) naltrexone 50 mg tablet 50 mg PO DAILY 30 days #30 t abs 03/07/25 nicotine (polacrilex) 2 mg gum 2 mg buccal Q1H PRN Michael otine 03/07/25 Cravings 30 days #120 ea nicotine 21 mg/24 hr daily 1 patch topical DAILY 28 da ys #28 03/07/25 transdermal patch ea olanzapine 5 mg tablet 5 mg PO BID PRN agitation 30 days 03/07/25 #60 tabs oxcarbazepine 300 mg tablet 300 mg PO BEDTIME 7 days # 7 tabs 03/07/25 rosuvastatin 5 mg tablet 5 mg PO DAILY 30 days #30 ta bs 03/07/25 thiamine HCl (vitamin B1) 100 mg 100 mg PO DAILY 30 da ys #30 tabs 03/07/25 tablet trazodone 50 mg tablet 50 mg PO BEDTIME PRN Insomni a 30 03/07/25 days #30 tabs Mental Status Exam Mental Status Exam Narrative: Pt is alert and oriented; behavior is cooperative and calm; dressed in own attire; mood is described as good; eye contact appropriate; Speech is normal rate, volume and not pressured; thought process is organized, linear; Thought content is on tx; denies SI/HI/VH/AH. Data Data Completed and Pending Completed studies during hospitalization [Text1]: 02/28/25 03/01/25 03/01/25 22:29 08:54 11:42 WBC 8.9 RBC 4.62 Hgb 14.7 Hct 43.3 MCV 93.7 MCH 31.8 MCHC 33.9 RDW 13.3 Plt Count 176 MPV 11.2 Immature Gran % (Auto) 0.3 Neut % (Auto) 68.0 Lymph % (Auto) 20.8 [place] % (Auto) 6.7 Eos % (Auto) 3.9 Baso % (Auto) 0.3 Lymph # (Auto) 1.9 [place] # (Auto) 0.6 Eos # (Auto) 0.4 Baso # (Auto) 0.0 Abs Immat Gran (auto) 0.03 Absolute Neuts (auto) 6.1 Absolute Nucleated RBC 0.000 Nucleated RBC % (auto) 0.0 Sodium 134 L Potassium 4.6 Chloride 99 Carbon Dioxide 27 Anion Gap 13 BUN 25 H Creatinine 0.91 Estim Creat Clear Calc 99.4 Estimated GFR > 60 POC Glucose 193 H 138 H Random Glucose 233 H Estimat Average Glucose 140 Hemoglobin A1c % 6.5 H Calcium 9.4 Total Bilirubin 0.3 AST 22 ALT 20 Alkaline Phosphatase 112 Total Protein 7.6 Albumin 4.3 Triglycerides 126 Cholesterol 174 LDL Cholesterol, Calc 111 H HDL Cholesterol 38 L TSH 1.49 03/01/25 03/01/25 03/02/25 16:51 20:47 07:58 WBC RBC Hgb Hct MCV MCH MCHC RDW Plt Count MPV Immature Gran % (Auto) Neut % (Auto) Lymph % (Auto) [place] % (Auto) Eos % (Auto) Baso % (Auto) Lymph # (Auto) [place] # (Auto) Eos # (Auto) Baso # (Auto) Abs Immat Gran (auto) Absolute Neuts (auto) Absolute Nucleated RBC Nucleated RBC % (auto) Sodium Potassium Chloride Carbon Dioxide Anion Gap BUN Creatinine Estim Creat Clear Calc Estimated GFR POC Glucose 182 H 192 H 136 H Random Glucose Estimat Average Glucose Hemoglobin A1c % Calcium Total Bilirubin AST ALT Alkaline Phosphatase Total Protein Albumin Triglycerides Cholesterol LDL Cholesterol, Calc HDL Cholesterol TSH 03/02/25 03/02/25 03/02/25 12:15 17:03 21:08 WBC RBC Hgb Hct MCV MCH MCHC RDW Plt Count MPV Immature Gran % (Auto) Neut % (Auto) Lymph % (Auto) [place] % (Auto) Eos % (Auto) Baso % (Auto) Lymph # (Auto) [place] # (Auto) Eos # (Auto) Baso # (Auto) Abs Immat Gran (auto) Absolute Neuts (auto) Absolute Nucleated RBC Nucleated RBC % (auto) Sodium Potassium Chloride Carbon Dioxide Anion Gap BUN Creatinine Estim Creat Clear Calc Estimated GFR POC Glucose 108 143 H 237 H Random Glucose Estimat Average Glucose Hemoglobin A1c % Calcium Total Bilirubin AST ALT Alkaline Phosphatase Total Protein Albumin Triglycerides Cholesterol LDL Cholesterol, Calc HDL Cholesterol TSH 03/03/25 03/03/25 03/03/25 07:51 08:19 11:58 WBC RBC Hgb Hct MCV MCH MCHC RDW Plt Count MPV Immature Gran % (Auto) Neut % (Auto) Lymph % (Auto) [place] % (Auto) Eos % (Auto) Baso % (Auto) Lymph # (Auto) [place] # (Auto) Eos # (Auto) Baso # (Auto) Abs Immat Gran (auto) Absolute Neuts (auto) Absolute Nucleated RBC Nucleated RBC % (auto) Sodium 139 Potassium 4.2 Chloride 102 Carbon Dioxide 27 Anion Gap 14 BUN 24 H Creatinine 0.81 Estim Creat Clear Calc 111.7 Estimated GFR > 60 POC Glucose 127 H 141 H Random Glucose 142 H Estimat Average Glucose Hemoglobin A1c % Calcium 9.3 Total Bilirubin 0.1 AST 26 ALT 30 Alkaline Phosphatase 134 H Total Protein 7.6 Albumin 4.3 Triglycerides Cholesterol LDL Cholesterol, Calc HDL Cholesterol TSH 03/03/25 03/03/25 03/04/25 17:00 20:48 07:39 WBC RBC Hgb Hct MCV MCH MCHC RDW Plt Count MPV Immature Gran % (Auto) Neut % (Auto) Lymph % (Auto) [place] % (Auto) Eos % (Auto) Baso % (Auto) Lymph # (Auto) [place] # (Auto) Eos # (Auto) Baso # (Auto) Abs Immat Gran (auto) Absolute Neuts (auto) Absolute Nucleated RBC Nucleated RBC % (auto) Sodium Potassium Chloride Carbon Dioxide Anion Gap BUN Creatinine Estim Creat Clear Calc Estimated GFR POC Glucose 132 H 281 H 112 Random Glucose Estimat Average Glucose Hemoglobin A1c % Calcium Total Bilirubin AST ALT Alkaline Phosphatase Total Protein Albumin Triglycerides Cholesterol LDL Cholesterol, Calc HDL Cholesterol TSH 03/04/25 03/04/25 03/04/25 11:56 16:38 20:29 WBC RBC Hgb Hct MCV MCH MCHC RDW Plt Count MPV Immature Gran % (Auto) Neut % (Auto) Lymph % (Auto) [place] % (Auto) Eos % (Auto) Baso % (Auto) Lymph # (Auto) [place] # (Auto) Eos # (Auto) Baso # (Auto) Abs Immat Gran (auto) Absolute Neuts (auto) Absolute Nucleated RBC Nucleated RBC % (auto) Sodium Potassium Chloride Carbon Dioxide Anion Gap BUN Creatinine Estim Creat Clear Calc Estimated GFR POC Glucose 173 H 236 H 216 H Random Glucose Estimat Average Glucose Hemoglobin A1c % Calcium Total Bilirubin AST ALT Alkaline Phosphatase Total Protein Albumin Triglycerides Cholesterol LDL Cholesterol, Calc HDL Cholesterol TSH 03/05/25 03/05/25 03/05/25 07:46 11:58 16:38 WBC RBC Hgb Hct MCV MCH MCHC RDW Plt Count MPV Immature Gran % (Auto) Neut % (Auto) Lymph % (Auto) [place] % (Auto) Eos % (Auto) Baso % (Auto) Lymph # (Auto) [place] # (Auto) Eos # (Auto) Baso # (Auto) Abs Immat Gran (auto) Absolute Neuts (auto) Absolute Nucleated RBC Nucleated RBC % (auto) Sodium Potassium Chloride Carbon Dioxide Anion Gap BUN Creatinine Estim Creat Clear Calc Estimated GFR POC Glucose 152 H 149 H 201 H Random Glucose Estimat Average Glucose Hemoglobin A1c % Calcium Total Bilirubin AST ALT Alkaline Phosphatase Total Protein Albumin Triglycerides Cholesterol LDL Cholesterol, Calc HDL Cholesterol TSH 03/05/25 03/06/25 03/06/25 21:09 07:45 12:08 WBC RBC Hgb Hct MCV MCH MCHC RDW Plt Count MPV Immature Gran % (Auto) Neut % (Auto) Lymph % (Auto) [place] % (Auto) Eos % (Auto) Baso % (Auto) Lymph # (Auto) [place] # (Auto) Eos # (Auto) Baso # (Auto) Abs Immat Gran (auto) Absolute Neuts (auto) Absolute Nucleated RBC Nucleated RBC % (auto) Sodium Potassium Chloride Carbon Dioxide Anion Gap BUN Creatinine Estim Creat Clear Calc Estimated GFR POC Glucose 283 H 177 H 166 H Random Glucose Estimat Average Glucose Hemoglobin A1c % Calcium Total Bilirubin AST ALT Alkaline Phosphatase Total Protein Albumin Triglycerides Cholesterol LDL Cholesterol, Calc HDL Cholesterol TSH 03/06/25 03/06/25 03/07/25 16:48 20:30 07:41 WBC RBC Hgb Hct MCV MCH MCHC RDW Plt Count MPV Immature Gran % (Auto) Neut % (Auto) Lymph % (Auto) [place] % (Auto) Eos % (Auto) Baso % (Auto) Lymph # (Auto) [place] # (Auto) Eos # (Auto) Baso # (Auto) Abs Immat Gran (auto) Absolute Neuts (auto) Absolute Nucleated RBC Nucleated RBC % (auto) Sodium Potassium Chloride Carbon Dioxide Anion Gap BUN Creatinine Estim Creat Clear Calc Estimated GFR POC Glucose 257 H 288 H 167 H Random Glucose Estimat Average Glucose Hemoglobin A1c % Calcium Total Bilirubin AST ALT Alkaline Phosphatase Total Protein Albumin Triglycerides Cholesterol LDL Cholesterol, Calc HDL Cholesterol TSH DS: Summary Hospital Course Hospital Course: per 03/01 admission note: HPI Subjective Notes: Plata Warning and Conditional Voluntary Healthcare Proxy: No Guardianship: No Medical Problems Affecting Mental Status: Yes (Found down some kidney issues, where he started drinking, and having SI) Narrative: Patient referred from [facility] ED, he is a 54 years old Chinese speaking male with history of hypertension, COPD, kidney stones-left kidney, mass on right kidney and alcohol use, history of type 2 diabetes, history of suicide attempts and history of suicidal thoughts presented via ambulance on a section 12 from [place] police from [employer] after expressing plans to jump off the roof of the parking structure while intoxicated. Patient been seen on 03/01 at 10:43 chief complaint I am suicidal I do not want to continue to be like this. I am an alcoholic. I do not want to be continue like this . Precipitants: Since he was informed that this is a mass in his right kidneys, he starts start drinking heavily for 3 weeks with a couple of pt a day with heaviest weight was last week. He he has been sober for 11 months prior to this relapsed. 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 Denies legal issues, history of DUI, not current. Denies access to guns. Denies SI/SIB/HI/AVH. Reports history of suicidal thoughts, and had doing stupid stuff when he has suicidal thoughts. History of suicide attempts via overdose on medications especially hydroxyzine. History of drinking alcohol to suicide attempts. He is anxious, but pleasant and cooperative, a self to the plans of medications. Reports sleeping and appetite has been good except for the weeks that he has been drinking. Mood is suck, reports increase in depression and anxiety /. Past Psychiatric History: He reports history of 1 inpatient level of care many y ears ago for suicidal thoughts. No history of PHP. History of numerous detox for alcohol. No outpatient psychiatrist or therapist. PCP manage his medication No medication trial psychiatric. Remember that he took antidepressant before but can not recall the name, many years ago Medical Evaluation Reviewed: Yes PMF Narrative: Hypertension COPD, Diabetes, Kidney stones on left kidney. Mass in the right kidney Family History: He is 8 years ago, having 2 children who are 17 and 20 years old. They are with their mom. Patient was tearful when talking about his family. Both mom and dad passed. Mom in 2016. Dad committed suicide in 1990. History of bipolar: was given Prozac and turn to really manic per patient report which make patient resists to medication. Both mom and dad were alcoholic. He has a sibling he has not in contact and not sure if this sibling have any mental health or alcohol or other drugs issues. Social History: He is homeless, some college level for education. 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 He has no family support. No outpatient support Substance History: History of using cocaine and heroin. Been sober for many years. Smoke a pack a day. Using marijuana history, but denies current use. Drinking alcohol started when he was in his early 20s, having history of sober for 11 months before this time. He relapsed on alcohol 3 weeks ago after find out about his kidney issues. Denies withdrawal seizures. Trauma History: Denies Precis: Formulation/clinical reasoning: Increased stress, increased depression and anxiety 05/12, relapsed on alcohol the past 3 weeks, suicidal thoughts with plan in context of acute medical condition that he just found down he has a mass in the kidney, he also lost his jobs 3 weeks at the same time with the kidneys issues. He has not diagnosed with depression or bipolar before. History of suicide attempts. No outpatient providers, no family support, no system support. Even the above information, patient will be safe to be in the restrictive environment, monitor for safety, for safe detoxing from alcohol, manage medications, and upon discharge, we will refer patient to outpatient psychiatrist and therapist. Hospital course: 02/27/25: He placed diabetic protocol with insulin sliding scale. Placed on CIWA protocol with Ativan p.r.n.. Continue with home medications for hypertension, COPD, diabetic. I have discussed with patient regarding diagnosis. He is not sure if he has manic episode, but mood is up and down, per patient, that was bipolar, was given Prozac which was very bad turn him into a manic. Since then, patient has been reluctant to assess any antidepressants. At this moment, we will continue to see if he has any manic behavior. It is safe to start him on mood stabilizer, then at antidepressants on as a plan for today We will start with Trileptal 300 twice a day for mood. Will continue to monitor for sodium. Low-sodium this morning, most likely from poor meal intake has been consistently drinking the past couple of weeks. We will also held the naltrexone until he is done with detox Continue with melatonin 6 mg at bedtime for insomnia. Trazodone as needed for sleep. Hydroxyzine 50 mg as needed for anxiety and Ativan PRN per CIWA protocol. Trulicity and COPD non firmly the inhal[place] [facility] [place] Hope he can get started tomorrow. 03/02/25: Continue with CIWA protocol which he has not score. No symptoms of withdrawal. Discontinue CIWA plus the Ativan PRNs. Denies safety concerns but reports moderate to severe anxiety and depression. Started Trileptal last night, took the 2nd dose in the morning, reportedly the bit tired, he napped earlier before lunch. Continue with point of care q.i.d.. Was able to shut now with genetic non formula medication. He able to receive the Trulicity today. Reported that he has not been eating well the past 4 weeks due to drinking which could be affect his sodium. Denies history of low-sodium. 03/03: Keeping to self. laying in bed most of day. Patient reports feeling tired but anxious; he reports sleeping well last night. denies SI/HI/VH/AH. Per psych social worker, pt has phone intake with [facility] today. Continue current tx plan. 03/04/25:Slept for 8 hours, was medication compliant. Wanted Trileptal moved to bedtime so she he does not get so sedated during daytime. Continue reports severe anxiety and depression. Give handout given to patient by nursing regarding antidepressants per his request. He will choose 1 of the antidepressants after reading them. Denies other safety concerns. No hallucinations. Continued to express wanting to go to treatment program which the only way that keep him not drinking. Declines to resume the naltrexone at his does not work. Hydrocortisone moved to as needed. Normal sodium level. 03/05/25: Patient slept for 7.5 hours, contracture trazodone due to a roommate moving around at night. Reports high in depression and anxiety, worry about placement, he is visible, attended groups, or reading in his room. He decided to choose Zoloft among other antidepressants for anxiety depression. Denies other safety concerns. We will monitor for any manic behavior. He was informed the sodium level. Zoloft 50 mg daily. First dose given today. 03/06: DC zoloft and trileptal, start wellbutrin for depression. FH supportive of bipolar diathesis, but pt has h/o depression only. reports father reacted poorly to prozac but sister tolerated zoloft well. no quan Hx in pt. awaiting word from rehabs. 03/07: safe and stable overnight. meds reviewed, reconciled, prescribed. discharged to rehab today. trileptal 300 QHS for one week, then DC. wellbutrin 150 started. Time Spent with Patient Time attestation: Total time managing care of this patient today _35___ minutes. Discharge Plan Discharge Anticipated Discharge Date/Time: 03/07/25 10:30 Patient Disposition: Xfer Inpatient Rehab Fac Discharge Diagnosis: MDD AUD Referrals: Karlie Pearce APRN [Primary Care Provider, Internal Medicine] - 03/27/25 10:30 am Referral Note: 03-07-25 Your follow up appt has been scheduled for 03-27-25 @ 10:30am Discharge Medications: New ketoconazole 2 % cream 1 appl topical DAILY Qty: 15 0RF Rx Instructions: Apply to face where affected. nicotine (polacrilex) 2 mg Gum 2 mg buccal Q1H PRN (Reason: Nicotine Cravings) 30 Days Qty: 120 0RF Trelegy Ellipta 100-62.5-25 mcg Blister With Device 1 inh inhalation RDAILY 30 Days Qty: 1 0RF olanzapine 5 mg Tablet 5 mg PO BID PRN (Reason: agitation) 30 Days Qty: 60 0RF oxcarbazepine 300 mg Tablet 300 mg PO BEDTIME 7 Days Qty: 7 0RF Rx Instructions: take for 1 week, then stop bupropion HCl 150 mg Tablet Extended Release 24 Hr 150 mg PO DAILY 30 Days Qty: 30 0RF trazodone 50 mg Tablet 50 mg PO BEDTIME PRN (Reason: Insomnia) 30 Days Qty: 30 0RF Continued naltrexone 50 mg tablet 50 mg PO DAILY 30 Days Qty: 30 0RF thiamine HCl (vitamin B1) 100 mg tablet 100 mg PO DAILY 30 Days Qty: 30 0RF melatonin 3 mg tablet 6 mg PO BEDTIME 30 Days Qty: 60 0RF lisinopril 10 mg tablet 10 mg PO DAILY 30 Days Qty: 30 0RF nicotine 21 mg/24 hr patch 24 hour 1 patch topical DAILY 28 Days Qty: 28 0RF folic acid 1 mg tablet 1 mg PO DAILY 30 Days Qty: 30 0RF albuterol sulfate [Ventolin HFA] 90 mcg/actuation HFA aerosol inhaler 2 puff inhalation Q4-6H PRN (Reason: Shortness Of Breath Or Wheezing) 30 Days Qty: 1 0RF rosuvastatin 5 mg tablet 5 mg PO DAILY 30 Days Qty: 30 0RF insulin glargine [Lantus Solostar U-100 Insulin] 100 unit/mL (3 mL) insulin pen 10 unit subcut BEDTIME 30 Days Qty: 3 0RF multivitamin with folic acid [Daily-Fady (with folic acid)] 400 mcg tablet 1 tab PO DAILY 30 Days Qty: 30 0RF Trulicity 1.5 mg/0.5 mL pen injector 1.5 mg subcut QWEEK 30 Days Qty: 2.5 0RF Rx Instructions: On Wednesdays Discontinued ketoconazole 2 % cream 1 appl topical DAILY Patient Comments: for sebborheic dermatitis umeclidinium-vilanterol [Anoro Ellipta] 62.5-25 mcg/actuation blister with device 1 ea inhalation DAILY Discharge Orders: Discharge Order (Routine); Ordered 03/07/25 Ordered By: Curt Payne Diet: Diabetic diet Activity on Discharge: As tolerated Stand Alone Forms: Patient Portal Discharge page, Community Support Print Language: Chinese Care Plan Goals: remain safe and stable in the outpatient treatment setting Health Concerns: Diabetes Mellitus Plan of Treatment: take medications as prescribed, attend appointments as scheduled Assessment: not at imminent risk of harm to self or others Discharge Date/Time: 03/07/25 10:20
== END 2025-03-07 10:20 | DRG 751 ==
PROVIDERS: Nurse Practitioner Family; Nurse Practitioner Psychiatric/Mental Health; Admitting Provider Psychiatry & Neurology Psychiatry; PCP Nurse Practitioner; Visit Provider Psychiatry & Neurology Psychiatry
DX: F33.1 Major depressive disorder, recurrent, moderate (principal); R45.851 Suicidal ideations; E11.9 Type 2 diabetes mellitus without complications; Z59.02 Unsheltered homelessness; F17.210 Nicotine dependence, cigarettes, uncomplicated; N20.0 Calculus of kidney; F10.10 Alcohol abuse, uncomplicated; E78.5 Hyperlipidemia, unspecified; J44.9 Chronic obstructive pulmonary disease, unspecified; N28.89 Other specified disorders of kidney and ureter; Z71.6 Tobacco abuse counseling; I10 Essential (primary) hypertension; Z79.4 Long term (current) use of insulin; Z79.51 Long term (current) use of inhaled steroids; Z79.85 Long-term (current) use of injectable non-insulin antidiabetic drugs; Z79.899 Other long term (current) drug therapy
CPT/HCPCS: 36415; 80053; 80061; 82947; 83036; 84443; 85025

== ENCOUNTER → 2025-02-28 18:39 | Outpatient (BNV) | payer OTHER, SELFPAY | PROVIDERS: Admitting Provider Psychiatry & Neurology Psychiatry; PCP Nurse Practitioner; Visit Provider Nurse Practitioner Family | DX: Z02.2 Encounter for examination for admission to residential institution (principal) | CPT/HCPCS: 99429 ==

== ENCOUNTER → 2025-02-28 18:39 | Outpatient (BNV) | payer OTHER, SELFPAY | PROVIDERS: Admitting Provider Psychiatry & Neurology Psychiatry; PCP Nurse Practitioner; Visit Provider Nurse Practitioner Psychiatric/Mental Health | DX: F33.1 Major depressive disorder, recurrent, moderate (principal); J44.9 Chronic obstructive pulmonary disease, unspecified; E11.9 Type 2 diabetes mellitus without complications; I10 Essential (primary) hypertension; F10.10 Alcohol abuse, uncomplicated | CPT/HCPCS: 99231; 99232 ==